=== PATIENT | male | born 1970 | race Caucasian/White ===

== ENCOUNTER 2016-10-10 00:21 | Emergency (ER) ==
[2016-10-10] MEDS ORDERED: NITROGLYCERIN SL PRN (00:28)
--- NOTE | 2016-10-10 00:41 | ED EKG INTERP ---
EKG Interpretation - EKG Time of EKG reading by physician:: 00:34 EKG Read and Signed by:: Ward Richard EKG Interpretation (*Must complete 3 of following elements*): Normal Rate: 77 Rhythm: Normal sinus rhythm Attestation - Scribe Verification/Attestation Scribe:: Francisco Hernández Acting as Scribe for:: Ward Richard Scribe documention review:: This chart was documented by a scribe and accurately reflects the service the provider performed and the decisions made by the provider.
[2016-10-10 01:46] LABS: BASO% 1.3 % (0.0-0.8); EOS# 0.76 X1000 (0.0-0.7); EOS% 9.3 % (0.0-10.0); HEMATOCRIT 43.2 % (42.0-52.0); HEMOGLOBIN 13.7 g/dL (14.0-18.0); IMM GRAN# 0.02 X1000 (0.0-0.04); IMM GRAN% 0.2 % (0.0-0.5); LYMPH# 1.95 X1000 (1.2-3.4); LYMPH% 23.8 % (20.5-51.1); MANUAL DIFF NEEDED? NO; MCH 22.9 PG (27-31); MCHC 31.7 g/dL (33-37); MCV 72.2 FL (81-99); MONO# 0.38 X1000 (0.11-0.59); MONO% 4.6 % (1.7-9.3); MPV 11.3 FL (7.4-10.4); NEUT% 60.8 % (42.2-75.2); PLT 316 X1000 (130-400); RBC 5.98 XMIL (4.7-6.1)
[2016-10-10 01:51] LABS: INR 0.98; PROTIME 10.4 Seconds (9.2-11.7); PTT 28.5 Seconds (22.0-36.0)
[2016-10-10 02:04] LABS: AGAP 17; ALBUMIN 4.6 g/dL (3.5-5.0); ALKALINE PHOSPHATASE 94 U/L (32-122); BUN 8 mg/dL (8-22); CALCIUM 9.2 mg/dL (8.8-10.2); CHLORIDE 102 mmol/L (98-107); CK PROFILE 194 U/L (24-204); COSMO 281; GOT 21 U/L (10-34); GPT 19 U/L (10-44); MAGNESIUM 2.2 mg/dL (1.5-2.7); POTASSIUM 4.1 mmol/L (3.5-5.1); SODIUM 142 mmol/L (136-145); TCO2 23 mmol/L (25-35); TOTAL BILIRUBIN 0.18 mg/dL (0.20-1.00); TOTAL PROTEIN 7.8 g/dL (6.3-8.3)
--- NOTE | 2016-10-10 02:55 | ED EKG INTERP ---
EKG Interpretation - EKG Time of EKG reading by physician:: 02:45 EKG Read and Signed by:: Ward Richard EKG Interpretation (*Must complete 3 of following elements*): Normal Rate: 71 Rhythm: Normal sinus rhythm Attestation - Scribe Verification/Attestation Scribe:: Francisco Hernández Acting as Scribe for:: Ward Richard Scribe documention review:: This chart was documented by a scribe and accurately reflects the service the provider performed and the decisions made by the provider.
--- NOTE | 2016-10-10 03:18 | PROVIDER DOCUMENTATION ---
HPI-Chest Pain - General Source: patient - History of Present Illness-CP Location: reports: central Chest Pain Radiation: reports: neck (L) Severity in ED: mild Onset/Duration: 4-6 hours ago Timing: still present Context/Activities at Onset: reports: light activity Associated Symptoms: reports: nausea. denies: abdominal pain, back pain, diaphoresis, edema, fatigue, headache, shortness of breath, swelling/lump in chest, syncope, vomiting, weakness Aspirin Treatment Today: no aspirin today <Francisco Hernández - Last Filed: 10/10/16 03:13> <Ward Richard - Last Filed: 10/10/16 03:59> - General Chief Complaint: Chest Pain Stated Complaint: CP Time Seen by Provider: 10/10/16 01:27 Allergies/Adverse Reactions: Patient Allergies Allergy/AdvReac Type Severity Reaction Status Date / Time acetaminophen [From [place]] Allergy Intermediate HIVES Verified 10/10/16 01:42 hydrocodone bitartrate * Allergy Intermediate HIVES Verified 10/10/16 01:42 [From [place]] ketorolac tromethamine * Allergy Mild RASH Verified 10/10/16 01:42 [From Toradol] promethazine HCl * AdvReac Mild "makes me Verified 10/10/16 01:42 [From Phenergan] drunk" Home Medications: Home Medication List Medication Instructions Recorded Confirmed Last Taken Type Aspirin EC 81 mg PO QAM 12/19/14 10/10/16 10/09/16 History Furosemide [Lasix] 40 mg PO DAILY PRN PRN 12/19/14 10/10/16 10/09/16 History Sertraline [Zoloft] 50 mg PO QAM 12/19/14 10/10/16 10/09/16 History Potassium Chloride 10 meq PO DAILY PRN 01/05/15 10/10/16 10/09/16 History Atorvastatin Calcium [Lipitor] 80 mg PO QAM 02/08/15 10/10/16 10/09/16 History Prasugrel [Effient] 10 mg PO QAM 05/28/15 10/10/16 10/09/16 History Ranolazine E.r. [Ranexa] 1,000 mg PO BID 05/21/16 10/10/16 10/09/16 History Ferrous Sulfate 325 mg PO DAILY 08/06/16 10/10/16 10/09/16 History Isosorbide Mononitrate [Isosorbide 30 mg PO BID 08/06/16 10/10/16 10/09/16 History Mononitrate ER] Metoprolol Tartrate 50 mg PO BID 08/06/16 10/10/16 10/09/16 History Nicotine Patch [Nicoderm Patch] 21 mg TD DAILY 08/06/16 10/10/16 10/09/16 History - History of Present Illness-CP Nature of Presenting Problem: Pt is a 46 yom who presents to ER with CC of chest pain with onset of x4-6 hours ago, when he was sitting at his tv. Pt indicates c/p at L anterior chest radiating to L posterior neck, started as 09/24 is now 03/24. On exam, pt is non diaphoretic and in no acute distress. Pt reports hx of CT x3. (Francisco Hernández) Review of Systems - Adult - REVIEW OF SYSTEMS - ADULT Constitutional: denies: chills, fever, fatique, night sweats Eyes: reports: no symptoms reported Ears, Nose, Mouth & Throat: reports: no symptoms reported Cardiovascular: reports: chest pain. denies: edema, heart murmur, irregular heart rate, orthopnea, palpitations, poor circulation, PND, syncope Respiratory: denies: chronic cough, cough, dyspnea on exertion, excessive sputum production, hemoptysis, shortness of breath, wheezing Gastrointestinal: reports: nausea. denies: abdominal pain, hematemesis, constipation, diarrhea, poor appetite, vomiting Genitourinary: reports: no symptoms reported Musculoskeletal: reports: neck pain (L posterior). denies: bone pain, back pain , frequent leg cramps, joint pain, joint swelling, muscle aches, muscle weakness Integumentary: reports: no symptoms reported Neurological: reports: no symptoms reported Psychiatric: reports: no symptoms reported Endocrine: reports: no symptoms reported Hematologic/Lymphatic: reports: no symptoms reported Allergic/Immunologic: reports: no symptoms reported All Other Systems: Reviewed and Negative <Francisco Hernández - Last Filed: 10/10/16 03:13> Past History - Adult - PAST MEDICAL HISTORY-ADULT Review of Records: reports: Nursing Assessment Review, Medications Reviewed Cardiovascular: reports: cardiac disease, hyperlipidemia, CT, other (CABG). denies: HTN (hypotension) Gastrointestinal: reports: GERD Musculoskeletal: reports: chronic pain (chronic back pain) Psychiatric: reports: depression - PRIOR SURGERIES/PROCEDURES Surgical/Procedure History: reports: CABG, cardiac stent, other (cardiac cath by dr vargas 05-29-15) - PRIOR HOSPITALIZATIONS Prior Hospitalizations: reports: for similar symptoms, for other non-related - IMMUNIZATION STATUS Childhood Immunizations: See Nurse Assessment Flu Vaccine: See Nurse Assessment - FAMILY HISTORY Family History: aortic disease <Francisco Hernández - Last Filed: 10/10/16 03:13> Physical Exam-General - PHYSICAL EXAM-ADULT Initial Vital Signs Reviewed: Yes - CONSTITUTIONAL General Appearance: appears well, alert, mild distress. negative: obese, lethargic, slow to respond, obtunded, combative - RESPIRATORY Respiratory: chest non-tender, lungs clear, normal breath sounds. negative: respiratory distress, decreased breath sounds, accessory muscle use, wheezing - CARDIOVASCULAR Cardiovascular: normal peripheral pulses, regular rate, rhythm. negative: bradycardia, tachycardia, diastolic murmur, systolic murmur, irregularly irregular - CHEST (BREASTS) Chest/Breast: no masses/lumps, no tenderness. negative: tenderness - GASTROINTESTINAL (ABDOMEN) Abdominal Exam: normal bowel sounds, non tender, soft. negative: abnormal bowel sounds, distended, guarding, rebound, tenderness, mass - MUSCULOSKELETAL Back Exam: no CVA tenderness, no vertebral tenderness. negative: CVA tenderness , decreased range of motion, muscle spasm, vertebral tenderness Extremity: normal range of motion, non-tender, normal gait. negative: deformity , erythema, inflammation, pedal edema, swelling, tenderness - NEUROLOGIC Neurologic: grossly normal, no motor/sensory deficits - PSYCHIATRIC Psych/Mental Status: normal thought content, normal thought process, oriented x 3, anxious <Francisco Hernández - Last Filed: 10/10/16 03:13> Progress <Francisco Hernández - Last Filed: 10/10/16 03:13> - XRAY 1 XRAY Study: Chest Impression: Normal <Ward Richard - Last Filed: 10/10/16 03:59> - PLAN OF CARE/RESULTS Progress/Plan/Lab Results: Laboratory Tests 10/10/16 10/10/16 10/10/16 01:25 01:25 01:25 WBC 8.21 RBC 5.98 Hgb 13.7 L Hct 43.2 MCV 72.2 L MCH 22.9 L MCHC 31.7 L RDW Std Deviation 17.6 H Plt Count 316 MPV 11.3 H Immature Gran % (Auto) 0.2 Neut % (Auto) 60.8 Lymph % (Auto) 23.8 Mckenzie % (Auto) 4.6 Eos % (Auto) 9.3 Baso % (Auto) 1.3 H Immature Gran # (Auto) 0.02 Neut # (Auto) 4.99 Lymph # (Auto) 1.95 Mckenzie # (Auto) 0.38 Eos # (Auto) 0.76 H Baso # (Auto) 0.11 PT INR PTT (Actin FS) D-Dimer 0.21 Sodium 142 Potassium 4.1 Chloride 102 Carbon Dioxide 23 L Anion Gap 17 BUN 8 Creatinine 1.2 Estimated GFR/1.73 m2 > 60 BUN/Creatinine Ratio 7 Glucose 96 Calculated Osmolality 281 Calcium 9.2 Magnesium 2.2 Total Bilirubin 0.18 L AST 21 ALT 19 Alkaline Phosphatase 94 Creatine Kinase 194 Troponin T Npk-U-Ptqhtyjpzwo Pept Total Protein 7.8 Albumin 4.6 Globulin 3.2 Albumin/Globulin Ratio 1.4 10/10/16 10/10/16 10/10/16 01:25 01:25 01:25 WBC RBC Hgb Hct MCV MCH MCHC RDW Std Deviation Plt Count MPV Immature Gran % (Auto) Neut % (Auto) Lymph % (Auto) Mckenzie % (Auto) Eos % (Auto) Baso % (Auto) Immature Gran # (Auto) Neut # (Auto) Lymph # (Auto) Mckenzie # (Auto) Eos # (Auto) Baso # (Auto) PT 10.4 INR 0.98 PTT (Actin FS) 28.5 D-Dimer Sodium Potassium Chloride Carbon Dioxide Anion Gap BUN Creatinine Estimated GFR/1.73 m2 BUN/Creatinine Ratio Glucose Calculated Osmolality Calcium Magnesium Total Bilirubin AST ALT Alkaline Phosphatase Creatine Kinase Troponin T < 0.010 Dao-Y-Bshpdlhedep Pept 33 Total Protein Albumin Globulin Albumin/Globulin Ratio 10/10/16 10/10/16 02:45 02:45 WBC RBC Hgb Hct MCV MCH MCHC RDW Std Deviation Plt Count MPV Immature Gran % (Auto) Neut % (Auto) Lymph % (Auto) Mckenzie % (Auto) Eos % (Auto) Baso % (Auto) Immature Gran # (Auto) Neut # (Auto) Lymph # (Auto) Mckenzie # (Auto) Eos # (Auto) Baso # (Auto) PT INR PTT (Actin FS) D-Dimer Sodium Potassium Chloride Carbon Dioxide Anion Gap BUN Creatinine Estimated GFR/1.73 m2 BUN/Creatinine Ratio Glucose Calculated Osmolality Calcium Magnesium Total Bilirubin AST ALT Alkaline Phosphatase Creatine Kinase 178 Troponin T < 0.010 Ubt-C-Npwgkojkced Pept Total Protein Albumin Globulin Albumin/Globulin Ratio Orders Category Date Time Status CHEST-2 VIEWS [RAD] Stat Exams 10/10/16 00:29 Taken CBC WITH ELECTRONIC DIFF [HEME] Stat Lab 10/10/16 01:25 Completed CK PROFILE [SP CHEM] Stat Lab 10/10/16 01:25 Completed CK PROFILE [SP CHEM] Stat Lab 10/10/16 02:45 Completed COMPREHENSIVE METABOLIC PANEL [CHEM] Stat Lab 10/10/16 01:25 Completed D-DIMER [CHEM] Stat Lab 10/10/16 01:25 Completed MAGNESIUM [CHEM] Stat Lab 10/10/16 01:25 Completed PRO B-NATRIURETIC PEPTIDE Stat Lab 10/10/16 01:25 Completed PROTIME WITH INR [COAG] Stat Lab 10/10/16 01:25 Completed PTT [COAG] Stat Lab 10/10/16 01:25 Completed TROPONIN T Stat Lab 10/10/16 01:25 Completed TROPONIN T Stat Lab 10/10/16 02:45 Completed Nitroglycerin Sl [Nitroglycerin] Med 10/10/16 00:28 Active 0.4 mg SL Q5M PRN PRN Oxycodone/APAP 10 mg/325 mg [Percocet-10] Med 10/10/16 03:48 Discontinued 1 each PO NOW ONE Promethazine [Phenergan] Med 10/10/16 03:48 Discontinued 25 mg PO NOW ONE EKG [EKG] Stat Ther 10/10/16 00:29 Ordered EKG [EKG] Stat Ther 10/10/16 02:28 Ordered Vital Signs Temp Pulse Resp BP Pulse Ox 10/10/16 00:24 98.1 F 61 20 193/83 100 acetaminophen [From [place]] Allergy (Intermediate, Verified 10/10/16 01:42) HIVES hydrocodone bitartrate * [From [place]] Allergy (Intermediate, Verified 10/10/16 01:42) HIVES ketorolac tromethamine * [From Toradol] Allergy (Mild, Verified 10/10/16 01:42) RASH promethazine HCl * [From Phenergan] Adverse Reaction (Mild, Verified 10/10/16 01 :42) "makes me drunk" Aspirin EC 81 mg PO QAM 12/19/14 Furosemide [Lasix] 40 mg PO DAILY PRN PRN 12/19/14 Sertraline [Zoloft] 50 mg PO QAM 12/19/14 Potassium Chloride 10 meq PO DAILY PRN 01/05/15 Atorvastatin Calcium [Lipitor] 80 mg PO QAM 02/08/15 Prasugrel [Effient] 10 mg PO QAM 05/28/15 Ranolazine E.r. [Ranexa] 1,000 mg PO BID 05/21/16 Ferrous Sulfate 325 mg PO DAILY 08/06/16 Isosorbide Mononitrate [Isosorbide Mononitrate ER] 30 mg PO BID 08/06/16 Metoprolol Tartrate 50 mg PO BID 08/06/16 Nicotine Patch [Nicoderm Patch] 21 mg TD DAILY 08/06/16 Laboratory 10/10/16 10/10/16 10/10/16 02:45 02:45 01:25 WBC RBC Hgb Hct MCV MCH MCHC RDW Std Deviation Plt Count MPV Immature Gran % (Auto) Neut % (Auto) Lymph % (Auto) Mckenzie % (Auto) Eos % (Auto) Baso % (Auto) Immature Gran # (Auto) Neut # (Auto) Lymph # (Auto) Mckenzie # (Auto) Eos # (Auto) Baso # (Auto) PT INR PTT (Actin FS) D-Dimer Sodium Potassium Chloride Carbon Dioxide Anion Gap BUN Creatinine Estimated GFR/1.73 m2 BUN/Creatinine Ratio Glucose Calculated Osmolality Calcium Magnesium Total Bilirubin AST ALT Alkaline Phosphatase Creatine Kinase 178 Troponin T < 0.010 < 0.010 Krs-N-Bbxymwkzzte Pept Total Protein Albumin Globulin Albumin/Globulin Ratio 10/10/16 10/10/16 10/10/16 01:25 01:25 01:25 WBC RBC Hgb Hct MCV MCH MCHC RDW Std Deviation Plt Count MPV Immature Gran % (Auto) Neut % (Auto) Lymph % (Auto) Mckenzie % (Auto) Eos % (Auto) Baso % (Auto) Immature Gran # (Auto) Neut # (Auto) Lymph # (Auto) Mckenzie # (Auto) Eos # (Auto) Baso # (Auto) PT 10.4 INR 0.98 PTT (Actin FS) 28.5 D-Dimer 0.21 Sodium Potassium Chloride Carbon Dioxide Anion Gap BUN Creatinine Estimated GFR/1.73 m2 BUN/Creatinine Ratio Glucose Calculated Osmolality Calcium Magnesium Total Bilirubin AST ALT Alkaline Phosphatase Creatine Kinase Troponin T Kdu-Z-Viahhcuypfg Pept 33 Total Protein Albumin Globulin Albumin/Globulin Ratio 10/10/16 10/10/16 01:25 01:25 WBC 8.21 RBC 5.98 Hgb 13.7 L Hct 43.2 MCV 72.2 L MCH 22.9 L MCHC 31.7 L RDW Std Deviation 17.6 H Plt Count 316 MPV 11.3 H Immature Gran % (Auto) 0.2 Neut % (Auto) 60.8 Lymph % (Auto) 23.8 Mckenzie % (Auto) 4.6 Eos % (Auto) 9.3 Baso % (Auto) 1.3 H Immature Gran # (Auto) 0.02 Neut # (Auto) 4.99 Lymph # (Auto) 1.95 Mckenzie # (Auto) 0.38 Eos # (Auto) 0.76 H Baso # (Auto) 0.11 PT INR PTT (Actin FS) D-Dimer Sodium 142 Potassium 4.1 Chloride 102 Carbon Dioxide 23 L Anion Gap 17 BUN 8 Creatinine 1.2 Estimated GFR/1.73 m2 > 60 BUN/Creatinine Ratio 7 Glucose 96 Calculated Osmolality 281 Calcium 9.2 Magnesium 2.2 Total Bilirubin 0.18 L AST 21 ALT 19 Alkaline Phosphatase 94 Creatine Kinase 194 Troponin T Opx-F-Owcfeliltdf Pept Total Protein 7.8 Albumin 4.6 Globulin 3.2 Albumin/Globulin Ratio 1.4 (Ward Richard) Departure <Francicso Hernández - Last Filed: 10/10/16 03:13> - Departure Time of Disposition Order: 03:58 Certified Medical Emergency: Emergent <Ward Richard - Last Filed: 10/10/16 03:59> - Departure DIAGNOSIS: Chest pain in adult Disposition: HOME 01 Condition: Good Attestation - Scribe Verification/Attestation Scribe:: Francisco Hernández Acting as Scribe for:: Ward Richard Scribe documention review:: This chart was documented by a scribe and accurately reflects the service the provider performed and the decisions made by the provider. <Francisco Hernández - Last Filed: 10/10/16 03:13> Physician Attestation
[2016-10-10] MEDS ORDERED: PERCOCET-10 PO ONE (03:48)
[2016-10-10] MEDS ORDERED: PHENERGAN PO ONE (03:48)
[2016-10-10 04:08] VITALS: BP 174/84
--- NOTE | 2016-10-10 09:44 | Diag Imaging Result Document ---
PROCEDURE NAME: CHEST-2 VIEWS - 10/10/2016 TWO VIEWS OF THE CHEST: There has been sternotomy. There is a granuloma in the lingula. There has been no significant change since 08/30/2016. IMPRESSION: No acute disease.
--- NOTE | 2016-10-11 07:27 | EKG Report ---
Test Performed on : 10/10/2016 00:34:56 AM Test Reason : Chest Pain Blood Pressure : / mmHG Vent. Rate : 077 BPM Atrial Rate : 077 BPM P-R Int : 144 ms QRS Dur : 096 ms QT Int : 416 ms P-R-T Axes : 063 070 079 degrees QTc Int : 470 ms Normal sinus rhythm. Normal ECG When compared with ECG of 30-AUG-2016 23:40, No significant change was found Unconfirmed Result
--- NOTE | 2016-10-11 07:32 | EKG Report ---
Test Performed on : 10/10/2016 02:45:35 AM Test Reason : cp Blood Pressure : / mmHG Vent. Rate : 071 BPM Atrial Rate : 071 BPM P-R Int : 146 ms QRS Dur : 104 ms QT Int : 430 ms P-R-T Axes : 069 077 075 degrees QTc Int : 467 ms Normal sinus rhythm. Normal ECG When compared with ECG of 10-OCT-2016 00:34, (Unconfirmed) No significant change was found Unconfirmed Result
== END 2016-10-10 04:09 | disposition home or self-care (01) ==
LOC: ED 00:21
DX: R07.89 Other chest pain (principal); M54.2 Cervicalgia; R11.0 Nausea; I25.2 Old myocardial infarction; E78.5 Hyperlipidemia, unspecified; G89.29 Other chronic pain; M54.9 Dorsalgia, unspecified; F32.9 Major depressive disorder, single episode, unspecified; Z79.82 Long term (current) use of aspirin; Z79.899 Other long term (current) drug therapy; Z95.1 Presence of aortocoronary bypass graft; Z95.5 Presence of coronary angioplasty implant and graft
CPT/HCPCS: 71020; 80053; 82550; 83735; 83880; 84484; 85025; 85379; 85610; 85730; 93005

== ENCOUNTER 2018-09-05 23:14 | Inpatient (IN) ==
[2018-09-05] MEDS ORDERED: ASPIRIN PO ONE (23:19)
[2018-09-05] MEDS ORDERED: ASPIRIN ONE (23:28)
[2018-09-06 00:09] LABS: BASO# 0.09 X1000 (0.0-0.2); BASO% 0.9 % (0.0-0.8); EOS% 8.9 % (0.0-10.0); HEMATOCRIT 45.6 % (42.0-52.0); HEMOGLOBIN 15.1 g/dL (14.0-18.0); IMM GRAN# 0.02 X1000 (0.0-0.04); IMM GRAN% 0.2 % (0.0-0.5); LYMPH# 2.96 X1000 (1.2-3.4); LYMPH% 29.2 % (20.5-51.1); MCH 28.1 PG (27-31); MCHC 33.1 g/dL (33-37); MCV 84.9 FL (81-99); MONO# 0.53 X1000 (0.11-0.59); MONO% 5.2 % (1.7-9.3); MPV 11.7 FL (7.4-10.4); NEUT# 5.62 X1000 (1.4-6.5); NEUT% 55.6 % (42.2-75.2); PLT 241 X1000 (130-400); RBC 5.37 XMIL (4.7-6.1); RDW 13.4 % (11.5-14.5); WBC 10.12 X1000 (4.8-10.8)
[2018-09-06 00:17] LABS: INR 0.91
[2018-09-06 00:47] LABS: AGAP 11; ALB/GLOB RATIO 1.6; ALKALINE PHOSPHATASE 89 U/L (32-122); BUN 10 mg/dL (8-22); CALCIUM 9.1 mg/dL (8.8-10.2); CHLORIDE 103 mmol/L (98-107); CK PROFILE 195 U/L (24-204); COSMO 281; CREATININE 1.2 mg/dL (0.7-1.2); ESTIMATED GFR > 60; GLUCOSE 146 mg/dL (70-104); GOT 18 U/L (10-34); GPT 21 U/L (10-44); SODIUM 140 mmol/L (136-145); TCO2 26 mmol/L (25-35); TOTAL BILIRUBIN < 0.15 mg/dL (0.20-1.00); TOTAL PROTEIN 6.5 g/dL (6.3-8.3)
[2018-09-06] MEDS ORDERED: LABETALOL IV PRN (01:33)
--- NOTE | 2018-09-06 01:43 | PROVIDER DOCUMENTATION ---
This chart was entered by Yasmeen Link Scribe, acting as scribe for Jimmie Rivera MD. HPI-Chest Pain - General Chief Complaint: Chest Pain Stated Complaint: CHEST PAIN-HX OF HEART PROBLEMS Time Seen by Provider: 09/06/18 01:03 Source: patient Allergies/Adverse Reactions: Patient Allergies Allergy/AdvReac Type Severity Reaction Status Date / Time acetaminophen [From [place]] Allergy Intermediate HIVES Verified 03/11/18 11:27 hydrocodone bitartrate * Allergy Intermediate HIVES Verified 03/11/18 11:27 [From [place]] ketorolac tromethamine * Allergy Mild RASH Verified 03/11/18 11:27 [From Toradol] promethazine HCl * AdvReac Mild "makes me Verified 03/11/18 11:27 [From Phenergan] drunk" Home Medications: Home Medication List Medication Instructions Recorded Confirmed Last Taken Type Atorvastatin Calcium [Lipitor] 80 mg PO DAILY 02/08/15 09/06/18 02/14/17 History Clonidine HCl 0.1 mg PO PRN PRN 01/24/17 09/06/18 02/14/17 History Omeprazole 40 mg PO DAILY@0700 01/24/17 09/06/18 02/14/17 History Tamsulosin HCl 1 tab PO DAILY 01/24/17 09/06/18 02/14/17 History Aspirin [Adult Low Dose Aspirin EC] 81 mg PO DAILY 12/12/17 09/06/18 Unknown History Febuxostat [Uloric] 80 mg PO DAILY 12/12/17 09/06/18 Unknown History Fluoxetine HCl 20 mg PO DAILY 12/12/17 09/06/18 Unknown History Hydrochlorothiazide 25 mg PO DAILY 12/12/17 09/06/18 Unknown History Lisinopril 40 mg PO DAILY 12/12/17 09/06/18 Unknown History Acetaminophen/Diphenhydramine 1 ea PO Q6-8H PRN PRN #20 tab 03/11/18 09/06/18 Unknown Rx [Percogesic 325-12.5 mg Tablet] - History of Present Illness-CP Nature of Presenting Problem: HEART SCORE 6 pt is a 48 yr old male presenting with chest pain radiating down left arm and nausea, pt denies shortness of breath. pt significant cardiac hx including 3 HI , 3 stents and CABG. 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 denies: diaphoresis, fatigue, shortness of breath, vomiting Nitro Today/Relief: 0.4 mg x 3, provided at home, no relief Aspirin Treatment Today: 325 mg x 1, provided at home Prior Chest Pain/Cardiac Workup: reports: heart attack (x3) Similar Symptoms Previously?: Yes Recently Seen Here or By Another Healthcare Provider: Yes Review of Systems - Adult - REVIEW OF SYSTEMS - ADULT Constitutional: denies: fever, [place]ique Eyes: denies: blurred vision, double vision Ears, Nose, Mouth & Throat: reports: no symptoms reported Cardiovascular: reports: chest pain. denies: palpitations, syncope Respiratory: denies: cough, shortness of breath, wheezing Gastrointestinal: reports: nausea. denies: vomiting Genitourinary: reports: no symptoms reported Musculoskeletal: reports: no symptoms reported Integumentary: reports: no symptoms reported Neurological: denies: dizziness/vertigo, headache/migraines Psychiatric: reports: no symptoms reported Endocrine: reports: no symptoms reported Hematologic/Lymphatic: reports: no symptoms reported Allergic/Immunologic: reports: no symptoms reported All Other Systems: Reviewed and Negative Past History - Adult - PAST MEDICAL HISTORY-ADULT Review of Records: reports: Nursing Assessment Review, Medications Reviewed, Social history reviewed & non-contributory. Major Childhood Illnesses: reports: denies history Cardiovascular: reports: cardiac disease, hyperlipidemia, HI, other (CABG). denies: HTN (hypotension) Respiratory: reports: denies history Gastrointestinal: reports: GERD Obstetrical/Gynecological: reports: denies history Genitourinary: reports: denies history Musculoskeletal: reports: chronic pain (chronic back pain) Neurological: reports: denies history Psychiatric: reports: depression Endocrine/Immune: reports: denies history Other Conditions: reports: denies history - PRIOR SURGERIES/PROCEDURES Surgical/Procedure History: reports: CABG, cardiac stent, other (cardiac cath by dr vargas 10-15-15) - PRIOR HOSPITALIZATIONS Prior Hospitalizations: reports: for similar symptoms, for other non-related - IMMUNIZATION STATUS Childhood Immunizations: See Nurse Assessment Flu Vaccine: See Nurse Assessment - FAMILY HISTORY Family History: aortic disease - SOCIAL HISTORY Smoking: cigarettes Provider spent 3-5 mins advising pt. on dangers of tobacco.: Discussed manners to quit use, and f/u contacts for add'l counseling. Substance Use: denies Living Situation: family Physical Exam-General - PHYSICAL EXAM-ADULT Initial Vital Signs Reviewed: Yes - CONSTITUTIONAL General Appearance: appears well, alert, no apparent distress - EYES Eyes: PERRL/EOMI - HEAD, EARS, NOSE, MOUTH & THROAT HENMT: normocephalic/atraumatic, moist mucous membranes - NECK Neck: non-tender, full range of motion, supple, normal inspection - RESPIRATORY Respiratory: chest non-tender, lungs clear, normal breath sounds - CARDIOVASCULAR Cardiovascular: normal peripheral pulses, regular rate, rhythm, no edema - GASTROINTESTINAL (ABDOMEN) Abdominal Exam: normal bowel sounds, non tender, soft - LYMPHATIC Lymphatic: no adenopathy - MUSCULOSKELETAL Back Exam: normal inspection, no CVA tenderness, no vertebral tenderness Extremity: normal range of motion, non-tender, normal gait, normal inspection - SKIN Integumentary: normal color, normal turgor, warm/dry - NEUROLOGIC Neurologic: grossly normal, no motor/sensory deficits - PSYCHIATRIC Psych/Mental Status: normal mood/affect, normal thought content, normal thought process, oriented x 3 Progress - PLAN OF CARE/RESULTS Progress/Plan/Lab Results: Vital Signs - 8 hr 09/05/18 23:24 Temperature 98.5 F Pulse Rate 88 Respiratory Rate 18 Blood Pressure 201/95 O2 Sat by Pulse Oximetry 99 Laboratory Results - last 24 hr 09/05/18 09/05/18 09/05/18 22:35 22:35 22:35 WBC 10.12 RBC 5.37 Hgb 15.1 Hct 45.6 MCV 84.9 MCH 28.1 MCHC 33.1 RDW Std Deviation 13.4 Plt Count 241 MPV 11.7 H Immature Gran % (Auto) 0.2 Neut % (Auto) 55.6 Lymph % (Auto) 29.2 [place] % (Auto) 5.2 Eos % (Auto) 8.9 Baso % (Auto) 0.9 H Immature Gran # (Auto) 0.02 Neut # (Auto) 5.62 Lymph # (Auto) 2.96 [place] # (Auto) 0.53 Eos # (Auto) 0.90 H Baso # (Auto) 0.09 PT INR PTT (Actin FS) Sodium 140 Potassium 4.0 Chloride 103 Carbon Dioxide 26 Anion Gap 11 BUN 10 Creatinine 1.2 Estimated GFR/1.73 m2 > 60 BUN/Creatinine Ratio 8 Glucose 146 H Calculated Osmolality 281 Calcium 9.1 Total Bilirubin < 0.15 L AST 18 ALT 21 Alkaline Phosphatase 89 Creatine Kinase 195 Troponin T Tcv-T-[id number] Pept 46 Total Protein 6.5 Albumin 4.0 Globulin 2.5 Albumin/Globulin Ratio 1.6 09/05/18 09/05/18 22:35 22:35 WBC RBC Hgb Hct MCV MCH MCHC RDW Std Deviation Plt Count MPV Immature Gran % (Auto) Neut % (Auto) Lymph % (Auto) [place] % (Auto) Eos % (Auto) Baso % (Auto) Immature Gran # (Auto) Neut # (Auto) Lymph # (Auto) [place] # (Auto) Eos # (Auto) Baso # (Auto) PT 13.0 INR 0.91 PTT (Actin FS) 29.0 Sodium Potassium Chloride Carbon Dioxide Anion Gap BUN Creatinine Estimated GFR/1.73 m2 BUN/Creatinine Ratio Glucose Calculated Osmolality Calcium Total Bilirubin AST ALT Alkaline Phosphatase Creatine Kinase Troponin T < 0.010 Wzy-[id number]-Vsrkmylqjql Pept Total Protein Albumin Globulin Albumin/Globulin Ratio Orders Category Date Time Status Activity Type ORDERED Care 09/06/18 01:28 Active Cardiac Monitoring DIRECTED Care 09/05/18 23:20 Active Oxygen Therapy- ED Nursing DIRECTED Care 09/05/18 23:20 Active Saline Loc NOW Care 09/05/18 23:20 Active Vital Signs Order Q1H Care 09/06/18 01:28 Active Heart Healthy Diet Diet 09/06/18 01:29 Active CHEST-2 VIEWS [RAD] Stat Exams 09/05/18 23:[address] ANGIOGRM PULMONARY ARTERIES [CT] Urgent Exams 09/06/18 01:31 Ordered CBC WITH ELECTRONIC DIFF [HEME] Stat Lab 09/05/18 22:35 Completed CK PROFILE [SP CHEM] Q8H Lab 09/06/18 01:30 Ordered CK PROFILE [SP CHEM] Q8H Lab 09/06/18 09:30 Ordered CK PROFILE [SP CHEM] Q8H Lab 09/06/18 17:30 Ordered CK PROFILE [SP CHEM] Stat Lab 09/05/18 22:35 Completed COMPREHENSIVE METABOLIC PANEL [CHEM] Stat Lab 09/05/18 22:35 Completed LIPID PROFILE W/CALC LDL [LIPIDS] Routine Lab 09/07/18 06:00 Ordered PRO B-NATRIURETIC PEPTIDE Stat Lab 09/05/18 22:35 Completed PROTIME WITH INR [COAG] Stat Lab 09/05/18 22:35 Completed PTT [COAG] Stat Lab 09/05/18 22:35 Completed TROPONIN T Q8HR Lab 09/06/18 05:00 Ordered TROPONIN T Q8HR Lab 09/06/18 13:00 Ordered TROPONIN T Q8HR Lab 09/06/18 21:00 Ordered TROPONIN T Stat Lab 09/05/18 22:35 Completed 0.9% Sodium Chloride Inj [Ns] 1,000 ml Med 09/06/18 01:45 Active IV 75 mls/hr ATORVAstatin [Lipitor] Med 09/06/18 09:00 Ordered 80 mg PO DAILY Aspirin Med 09/05/18 23:28 Discontinued 243 mg .ROUTE .STK-MED ONE Aspirin Med 09/05/18 23:19 Discontinued 243 mg PO NOW ONE Aspirin EC Med 09/06/18 09:00 Ordered 81 mg PO DAILY Carvedilol [Coreg] Med 09/06/18 09:00 Ordered 6.25 mg PO BID Febuxostat [Uloric] Med 09/06/18 09:00 Ordered 80 mg PO DAILY Fluoxetine [Prozac] Med 09/06/18 09:00 Ordered 20 mg PO DAILY Hydrochlorothiazide Med 09/06/18 09:00 Active 25 mg PO DAILY Hydromorphone [Dilaudid] Med 09/06/18 01:38 Active 0.5 mg IV Q6H PRN PRN Labetalol Med 09/06/18 01:33 Active 20 mg IV Q4H PRN PRN Lisinopril [Lisinopril] Med 09/06/18 09:00 Ordered 40 mg PO DAILY Omeprazole [Prilosec] Med 09/06/18 07:00 Active 40 mg PO DAILY@0700 Pantoprazole [Protonix] Med 09/06/18 01:45 Discontinued 40 mg IV Q24H Tamsulosin [Flomax] Med 09/06/18 09:00 Active 0.4 mg PO DAILY CP/SOB/Palp >45 yrs of Age Stat Oth 09/05/18 23:19 Ordered ECHO COMPL W/Contrast Definity Routine Ther 09/06/18 01:31 Ordered EKG [EKG] Stat Ther 09/05/18 23:20 Ordered Result Diagrams: 09/05/18 22:35 09/05/18 22:35 - EKG 1 Time of EKG reading by physician:: 23:23 EKG Read and Signed by:: Jimmie Rivera EKG Interpretation (*Must complete 3 of following elements*): Abnormal Rate: 89 Rhythm: nsr [place]: normal QRS: normal [place] Interval: prolonged ST Wave: normal - CONSULTS/PCP/HOSPITALIST Notification #1 *Consult/PCP/Hospitalist*: Dr Landeros Time Discussed: 01:20 Reason/Comments: plan of care for pt admission Consult Disposition: Admit Departure - Departure Date of Disposition Decision: 09/06/18 Time of Disposition Decision: 01:32 DIAGNOSIS: Chest pain Disposition: ADMITTED INPATIENT 09 Certified Medical Emergency: Emergent Condition: Stable Referrals and Follow-Ups: Evelio Del Real MD [Primary Care Provider] - - Critical Care Note This patient required my direct & personal management of CC.: No Attestation - Physician/ ARVIND Attestation Patient care was provided by Advanced Practice Provider:: No The physician spent face to face time with patient:: Yes Advanced Practice Provider documentation review:: Supervising physician onsite and consulted in the evaluation and care of this patient. The physician did have a face to face encounter with the patient. This chart was documented by the indicated scribe, (Yasmeen Link Scribe) and accurately reflects the services I performed and decisions made by me, Jimmie Rivera MD, as attested by the provider's signature.
[2018-09-06] MEDS ORDERED: SODIUM CHLORIDE 0.9% INJ SCH (01:45)
[2018-09-06] MEDS ORDERED: PROTONIX IV SCH (01:45)
[2018-09-06] MEDS ORDERED: NS 1,000 ML IV SCH (01:45)
[2018-09-06] MEDS: DILAUDID IV PRN ×3 (02:36→17:55)
[2018-09-06] MEDS ORDERED: ZOFRAN IV ONE (05:32)
[2018-09-06] MEDS ORDERED: DILAUDID IV ONE (05:32)
--- NOTE | 2018-09-06 05:39 | Diag Imaging Result Doc PS360 ---
EXAM: CHEST-2 VIEWS HISTORY: CP TECHNIQUE: Chest two views COMPARISON: 12/11/2017 FINDINGS: The lungs are well expanded. The heart is not enlarged. Sternal wires are present. The vessels are not distended. There are no infiltrates. No pleural effusions. IMPRESSION: No acute abnormality. Electronically signed by Carlos Ruggiero 09/06/2018 5:37 AM
--- NOTE | 2018-09-06 06:29 | Diag Imaging Result Doc PS360 ---
CT ANGIOGRM PULMONARY ARTERIES - 09/06/2018 INDICATION: chest pain TECHNIQUE: Axial CT images were obtained after administering intravenous contrast. Coronal MIP images were generated. COMPARISON: None FINDINGS: There is no pulmonary embolism. There is advanced calcified coronary artery disease. There are CABG changes. The left anterior descending bypass graft appears to be patent. Upper abdominal images are unremarkable. The lungs and airways are clear. Bony structures are intact. IMPRESSION: Negative for pulmonary embolism. No acute disease. This exam was performed using automated exposure control, adjustment of mA or kV according to patient size, and/or use of iterative reconstruction technique Electronically signed by Donaldo Wiggins 09/06/2018 6:27 AM
[2018-09-06] MEDS ORDERED: PRILOSEC PO SCH (07:00)
--- NOTE | 2018-09-06 07:11 | EKG Report ---
Test Performed on : 09/05/2018 11:23:01 PM Test Reason : CP Blood Pressure : / mmHG Vent. Rate : 089 BPM Atrial Rate : 089 BPM P-R Int : 146 ms QRS Dur : 088 ms QT Int : 398 ms P-R-T Axes : 064 078 081 degrees QTc Int : 484 ms Normal sinus rhythm. Prolonged QT Abnormal ECG When compared with ECG of 12-DEC-2017 10:33, (Unconfirmed) No significant change was found Unconfirmed Result
--- NOTE | 2018-09-06 08:32 | HISTORY AND PHYSICAL ---
CHIEF COMPLAINT: Left-sided chest pain which started prior to admission. HISTORY OF PRESENT ILLNESS: Mr. Baron Hess is a 48-year-old male who has a history of coronary artery disease, hypertension, diabetes mellitus, gout, and hyperlipidemia. He presented to the hospital because of left-sided chest pain which started about 1-1/2 hours prior to presenting to the ER. He described the pain as pressure-like. On a scale of 0 to 10, it is about 8/10. Intermittent and he feels some heaviness in the left arm. No known aggravating or alleviating factors. Denies any palpitations, shortness of breath, or diaphoresis. However, he does admits to having some nausea. He was seen and evaluated in the ER. He will now be admitted to the floor for further management. PAST MEDICAL HISTORY: Coronary artery disease, hypertension, diabetes, gout, hyperlipidemia. SOCIAL HISTORY: He smokes cigarettes. No alcohol or drug use. ALLERGIES: He is allergic to [place], Ketoralac, as well as promethazine. FAMILY HISTORY: Positive for heart disease. MEDICATIONS: Include the following, atorvastatin calcium 80 mg p.o. daily, clonidine 0.1 mg p.o. p.r.n., omeprazole 40 mg p.o. daily, tamsulosin 1 tablet p.o. daily, aspirin 81 mg p.o. daily, Uloric 80 mg p.o. daily, fluoxetine 10 mg p.o. daily, hydrochlorothiazide 25 mg p.o. once a day, lisinopril 40 mg p.o. daily, Percogesic 325/12.5 one p.o. q.6-8 hours p.r.n. PAST SURGICAL HISTORY: The patient has had CABG in the past. This was in 2016. REVIEW OF SYSTEMS: Constitutional: No fever. 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 Eyes: No blurred vision. ENT: No sinus problems or hearing loss. Cardiovascular: As in the history of present illness. Respiratory: No cough. Gastroenterology: Has nausea. No vomiting. No diarrhea or constipation. No abdominal pains. : No dysuria. Psychiatric: Has anxiety with depression. Endocrinology: Has diabetes but no thyroid disease. Dermatology: No skin lesions. Allergy/Immunology: Positive allergic symptoms. Musculoskeletal: Has joint pains. Hematology: No bleeding problems PHYSICAL EXAMINATION: VITAL SIGNS: Temperature 98.5 degrees, pulse 88, respiratory rate is 18, blood pressure 201/95, oxygen saturation 98%. HEENT: Atraumatic, normocephalic. He is anicteric. No oral lesions noted. NECK: No lymphadenopathy or thyromegaly. CARDIOVASCULAR: S1, S2. RESPIRATORY SYSTEM: Has evidence of good air entry bilaterally. ABDOMEN: Soft, nontender. No masses felt. EXTREMITIES: No evidence of edema. CENTRAL NERVOUS SYSTEM: No evidence of focal deficit noted. LABS: WBCs 10.13, hematocrit is 45.6, with a platelet count of 241,000. Sodium is 140, potassium 4.0, chloride is 103, bicarb 26, BUN is 10, creatinine is 1.2. Troponin less than 0.010. EKG shows a normal sinus rhythm with a prolonged MI interval. ASSESSMENT AND PLAN: This is a 48-year-old male who presented to the hospital because of left- sided chest pain. He does have a history of coronary artery disease and had a coronary artery bypass graft in 2016. 1. Atypical chest pain/history of coronary artery disease. Place patient in telemetry. Get serial cardiac enzymes. Maintain patient on aspirin as well as a beta ilda. Get a 2D echocardiogram of the heart. Consult with cardiology. Also get a CTA of the chest. 2. Diabetes mellitus. Maintain patient on sliding scale insulin. Monitor blood sugar levels. Get a hemoglobin A1c level. 3. Hypertension. Optimize blood pressure control using both oral as well as parenteral agent. 4. Gout. Continue Uloric. 5. Hyperlipidemia. Continue lipid-lowering agent. 6. Deep vein thrombosis prophylaxis. Lovenox. 7. Gastrointestinal prophylaxis. Proton pump inhibitor. cc: Ruben Lnaderos MD
[2018-09-06] MEDS ORDERED: COREG PO SCH (09:00)
[2018-09-06] MEDS ORDERED: PRINIVIL PO SCH (09:00)
[2018-09-06] MEDS ORDERED: FLOMAX PO SCH (09:00)
[2018-09-06] MEDS ORDERED: HYDROCHLOROTHIAZIDE PO SCH (09:00)
[2018-09-06] MEDS ORDERED: PROZAC PO SCH (09:00)
[2018-09-06] MEDS ORDERED: LIPITOR PO SCH (09:00)
[2018-09-06] MEDS ORDERED: ASPIRIN EC PO SCH (09:00)
[2018-09-06] MEDS ORDERED: ULORIC PO SCH (09:00)
--- NOTE | 2018-09-06 10:54 | PROGRESS NOTE ---
DATE: 09/06/2018 SUBJECTIVE: This morning Mr. Hess refers to be doing a lot better. Still said he has some chest pain, but not as severe as it was early on when he came to the hospital. Of note, he presented with a blood pressure of 201/95, which has also gradually improved. OBJECTIVELY: Vitals: Currently, blood pressure is 126/57, pulse is 57, respirations 12, temperature 98 degrees. Patient was saturating 94% on room air. General: Mr. Hess is a 48- year-old gentleman. He is in bed. No distress. HEENT: Mucosa is pink and moist. Anicteric. Acyanotic. Neck: Supple. Respiratory: There is good air entry bilaterally. No crepitations. No rhonchi. Cardiovascular: Regular rate and rhythm. There is an old sternotomy scar on the anterior chest wall. There is minimum tenderness also to the left upper chest wall. GI: Abdomen was soft, nontender. Bowel sounds present. Extremities: No pedal edema. Distal pulses present. CENTER DIRECTOR LEAD TEACHER: Patient was awake, alert, oriented. There is no focal neurological deficit. LABORATORY DATA/DIAGNOSTIC DATA: None for today. However, patient troponins have been trended 2 times and they are negative. EKG yesterday did show normal sinus rhythm. There was no ST-segment abnormality. A chest x-ray was negative for any acute pathology. A CTA of the lungs also was negative for PE. CURRENT MEDICATIONS: Have all been reviewed. They include: 1. Aspirin 81 mg daily. 2. Lipitor 80 mg daily. 3. Carvedilol 6.25 b.i.d. 4. Uloric 80 mg daily. 5. Prozac 20 mg daily. 6. Hydrochlorothiazide 25 mg daily. 7. Labetalol p.r.n. 8. Lisinopril 40 mg daily. 9. Omeprazole 40 mg daily. 10. Normal saline at 75 mL per hour. ASSESSMENT: 1. Atypical chest pain. The patient does have a remarkable history of coronary artery disease. He is status post coronary artery bypass graft and stents. However, the last time he was evaluated in November, a stress test was negative. We will be pending Cardiology consult today and go from there. The patient is also pending a 3rd repeat of his troponins. 2. Severe, uncontrolled hypertension on presentation. This is a lot better. It could also be that the patient had precordialgia secondary to severe uncontrolled hypertension, which seems to have improved and the chest pain also has improved. 3. Tobacco abuse. The patient continues to smoke a lot. 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 4. Dyslipidemia. We will continue with statin. 5. Gout. The patient is on Uloric. So, in general, I think Mr. Hess is doing fairly stable. He still has some lingering chest pain, but he refers to be feeling better. We are pending his 3rd troponin and Cardiology recommendations. cc: Jordin Diaz MD MTDD
[2018-09-06] MEDS ORDERED: LOVENOX SUBQ SCH (11:15)
[2018-09-06] MEDS ORDERED: RANEXA PO SCH (11:15)
--- NOTE | 2018-09-06 11:50 | CONSULTATION ---
DATE OF CONSULTATION: 09/06/2018 REASON FOR CONSULTATION: Cardiology was consulted for chest pain. HISTORY OF PRESENT ILLNESS: Mr. Baron Hess is a 48-year-old, gentleman, with history of coronary artery disease, coronary artery bypass grafting, hypertension, comes with complaints of left-sided chest pain which lasted for about 1 to 1.5 hours on a scale he describes as severe 8/10 with heaviness radiating to the left arm. Patient came to the emergency room and was admitted. At the time of my examination, patient was pain free. He has had recurrent visits to the emergency room and has had chest pains frequently. He says he has symptoms of chest pain at least a couple of times a month which are severe enough, however, otherwise he has mild frequent episodes of chest discomfort. There is no associated diaphoresis. There is no palpitations there is no dizziness or syncope. REVIEW OF SYSTEMS: Fourteen-point review of systems was done. GI: There is no history of nausea, vomiting, diarrhea. There is no history of hematemesis or melena. Central nervous system: No focal weakness to suggest a CVA or TIA. Genitourinary: There is no dysuria or hematuria. PAST MEDICAL HISTORY: 1. Coronary artery disease, status post coronary artery bypass grafting at [place], [place] in 2016. 2. He had a drug-eluting stent placement to the saphenous vein graft to obtuse marginal artery. 3. He also had a stent placement to the mid right coronary artery again in 2016. We will get records of all the above. 4. History of hyperlipidemia. 5. Gastroesophageal reflux disease. 6. Depression. 7. Hypertension. 8. The patient is a smoker, has been smoking for many years. HOME MEDICATIONS: Include atorvastatin 80. Clonidine 0.1 p.r.n., omeprazole 40, tamsulosin, enteric-coated aspirin 81 mg a day. Fluoxetine 10, hydrochlorothiazide 25, lisinopril 40, Percogesic. PAST SURGICAL HISTORY: CABG. PHYSICAL EXAMINATION: Vital Signs: On examination, when he came to the emergency room, blood pressure was 200/95. At the time of my examination, blood pressure was 103/59. Neck: Jugular venous pressure was normal. Cardiac: First and second heart sounds were heard. There is no S3, S4 or gallop. Respiratory system: Normal air entry. There is no crepitations or rhonchi. Abdomen: Soft, nontender. There was no guarding or rigidity. Bowel sounds were heard. Central nervous system: Alert and was moving all 4 extremities. Extremities: Examination of extremities revealed no pedal edema. HEENT: Atraumatic, normocephalic. Pupils were equal and reacting to light. LABS: Cardiac enzymes were negative. Electrocardiogram revealed normal sinus rhythm, first- degree AV block with nonspecific ST-T changes. IMPRESSION: Mr. Baron Chinedu Hess is a 48-year-old, gentleman with: 1. History of smoking. 2. Coronary artery disease. 3. Coronary artery bypass grafting. 4. Hypertension. 5. Hyperlipidemia. ASSESSMENT AND PLAN: 1. Coronary intervention in the past. Underwent coronary artery bypass grafting sometime in 2016. Subsequently, he had a saphenous vein graft stent placed on 11/06/2015 in [place]. He also had another stent placed to the mid right coronary artery in January 2016. We will obtain his bypass records from [place]. 2. He has had recurrent episodes of chest pains, which is with multiple visits to the emergency room as well. Given this, I have recommended that he undergo a left heart catheterization. The patient has unstable angina. Risks, benefits, alternatives were explained. Patient will be set up for left heart catheterization in the morning. 3. As far as medications are concerned, in addition to aspirin we will put him on Lovenox, beta blockers and Ranexa. 4. Hypertension: When he came in, his blood pressure was elevated at 200, currently blood pressure is normal. We will continue with his lisinopril. 5. Hyperlipidemia: He is to continue with atorvastatin. 6. He has gastroesophageal reflux disease. Continue with omeprazole. Thank you for the consult. We will follow hospital course. cc: Antoine Martin MD
--- NOTE | 2018-09-06 18:12 | ECHO REPORT ---
ORDER DATE: 09/06/2018 CLINICAL INDICATIONS: A 48-year-old male with chest pain. REQUESTING PHYSICIAN: Dr. Landeros. M-MODE MEASUREMENTS: Left ventricle end diastole: 4.5 cm. Left ventricle end systole: 2.9 cm. Posterior wall: 1.0 cm. Interventricular septum: 1.0 cm. Left atrium: 3.6 cm. Aortic root: 3.0 cm. SUMMARY OF 2-DIMENSIONAL IMAGIN. The left ventricular function is normal. Ejection fraction is estimated visually at 60% to 65%. No wall motion abnormality is noted. 2. The right ventricle appears to be normal. 3. The atria appear to be grossly normal. 4. The mitral valve is normal. 5. Pulse wave Doppler of mitral inflow is normal. 6. Tissue Doppler of septal and lateral mitral annulus averages 7 cm. 7. There is no diastolic dysfunction. 8. No significant mitral regurgitation is noted. 9. The aortic valve appears to be normal. 10.Pulmonary valve looks unremarkable. 11.Tricuspid valve is normal. Color flow mapping indicates mild degree of regurgitation. 12.Pulmonary pressure is 31 mmHg. 13.No pericardial effusion, mass, and no thrombus. Clinical correlation is recommended. cc: MD Ruben Tarango MD
[2018-09-06 18:20] VITALS: BP 138/89
--- NOTE | 2018-09-08 06:45 | DISCHARGE SUMMARY ---
ADMISSION DATE: 09/06/2018 DISCHARGE DATE: 09/06/2018 DATE OF ELOPEMENT: 09/06/2018 at 20:39. ADMISSION DIAGNOSES: 1. Atypical chest pain. 2. Diabetes mellitus. 3. Hypertension. DIAGNOSES AT TIME OF ELOPEMENT: 1. Atypical chest pain. 2. Severe uncontrolled hypertension on presentation. 3. History of coronary artery disease status post bypass and stents. 4. Tobacco abuse. 5. Dyslipidemia. 6. Gout. PRESENTING COMPLAINT: Left-sided chest pain. HISTORY OF PRESENTING COMPLAINT: Mr. Hess is a 48-year-old male with an extensive history of coronary artery disease status post CABG and stents, diabetes mellitus, dyslipidemia, who presented to the emergency department because of chest pain with unremarkable EKGs and normal troponin's. The patient was evaluated by Cardiology and there was a plan for a left heart catheterization. However, the patient ran away the same day, and did not want to stay in the hospital. When the nurse went to check on him in the ER, it was found the room was empty. The patient had gone away. cc: Jordin Diaz MD
== END 2018-09-06 20:22 | disposition left against medical advice (07) | DRG 313 ==
LOC: ED 23:14 → EDIPHOLD 09-06 07:13 → SUATTDRO 09-06 07:13 → EDIPHOLD 09-06 19:20
PROVIDERS: ATTEND Internal Medicine
CPT/HCPCS: 71020; 71046; 71275; 80053; 82550; 83880; 84484; 85025; 85610; 85730; 93005; 93306; 96361; 96372; 96374; 96375; 96376; 99285; A9270; C8929; J1170; J1650; J2405; J7030; Q9957; Q9967

== ENCOUNTER 2019-01-03 18:16 | Inpatient (IN) ==
[2019-01-03] MEDS ORDERED: NITROGLYCERIN SL PRN (18:37)
[2019-01-03] MEDS ORDERED: ASPIRIN PO ONE (18:37)
[2019-01-03] MEDS ORDERED: LABETALOL IV ONE ×2 (18:49→19:35)
[2019-01-03 18:51] LABS: BASO# 0.09 X1000 (0.0-0.2); BASO% 0.8 % (0.0-0.8); EOS# 0.33 X1000 (0.0-0.7); EOS% 2.8 % (0.0-10.0); HEMATOCRIT 44.8 % (42.0-52.0); HEMOGLOBIN 15.8 g/dL (14.0-18.0); IMM GRAN# 0.02 X1000 (0.0-0.04); IMM GRAN% 0.2 % (0.0-0.5); LYMPH# 2.21 X1000 (1.2-3.4); LYMPH% 19.1 % (20.5-51.1); MCH 28.7 PG (27-31); MCHC 35.3 g/dL (33-37); MCV 81.5 FL (81-99); MONO# 0.66 X1000 (0.11-0.59); MONO% 5.7 % (1.7-9.3); MPV 11.8 FL (7.4-10.4); NEUT# 8.29 X1000 (1.4-6.5); NEUT% 71.4 % (42.2-75.2); PLT 292 X1000 (130-400); RDW 13.2 % (11.5-14.5)
[2019-01-03] MEDS ORDERED: LABETALOL ONE ×2 (18:51→19:44)
--- NOTE | 2019-01-03 18:53 | EKG Report ---
Test Performed on : 01/03/2019 6:21:08 PM Test Reason : CP Blood Pressure : / mmHG Vent. Rate : 097 BPM Atrial Rate : 097 BPM P-R Int : 144 ms QRS Dur : 088 ms QT Int : 372 ms P-R-T Axes : 067 082 079 degrees QTc Int : 472 ms Normal sinus rhythm. Possible Left atrial enlargement Borderline ECG When compared with ECG of 05-SEP-2018 23:23, No significant change was found Unconfirmed Result
[2019-01-03 19:08] LABS: INR 0.96; PROTIME 13.3 Seconds (11.0-16.0); PTT 31.3 Seconds (22.3-41.8)
--- NOTE | 2019-01-03 19:16 | PROVIDER DOCUMENTATION ---
This chart was entered by Ruby Ham Scribe, acting as scribe for Evelyn Wheeler CRNP. HPI-Chest Pain - General Chief Complaint: Chest Pain Stated Complaint: CHEST PAIN Time Seen by Provider: 01/03/19 18:38 Source: patient Allergies/Adverse Reactions: Patient Allergies Allergy/AdvReac Type Severity Reaction Status Date / Time acetaminophen [From Boyds] Allergy Intermediate HIVES Verified 03/11/18 11:27 hydrocodone bitartrate * Allergy Intermediate HIVES Verified 03/11/18 11:27 [From Boyds] ketorolac tromethamine * Allergy Mild RASH Verified 03/11/18 11:27 [From Toradol] promethazine HCl * AdvReac Mild "makes me Verified 03/11/18 11:27 [From Phenergan] drunk" Home Medications: Home Medication List Medication Instructions Recorded Confirmed Last Taken Type Atorvastatin Calcium [Lipitor] 80 mg PO DAILY 02/08/15 09/06/18 02/14/17 History Clonidine HCl 0.1 mg PO PRN PRN 01/24/17 09/06/18 02/14/17 History Omeprazole 40 mg PO DAILY@0700 01/24/17 09/06/18 02/14/17 History Tamsulosin HCl 1 tab PO DAILY 01/24/17 09/06/18 02/14/17 History Aspirin [Adult Low Dose Aspirin EC] 81 mg PO DAILY 12/12/17 09/06/18 Unknown History Febuxostat [Uloric] 80 mg PO DAILY 12/12/17 09/06/18 Unknown History Fluoxetine HCl 20 mg PO DAILY 12/12/17 09/06/18 Unknown History Hydrochlorothiazide 25 mg PO DAILY 12/12/17 09/06/18 Unknown History Lisinopril 40 mg PO DAILY 12/12/17 09/06/18 Unknown History Acetaminophen/Diphenhydramine 1 ea PO Q6-8H PRN PRN #20 tab 03/11/18 09/06/18 Unknown Rx [Percogesic 325-12.5 mg Tablet] - History of Present Illness-CP Nature of Presenting Problem: 48yom presents to ED cc left side chest pain that radiates down left arm and nausea that started 2 hours ago while he was yelling. Pt denies vomiting or abdominal pain. Pt has hx of IA, GERD, HTN and hyperlipidemia. Pt is non-toxic in appearance. Location: reports: central Chest Pain Radiation: reports: arms (left), neck Quality of Pain: reports: pressure Severity in ED: mild Onset/Duration: 1-3 hours ago Timing: still present, intermittent Context/Activities at Onset: reports: other (pt reports he was yelling) Modifying Factors: improves with: nothing Associated Symptoms: reports: nausea. denies: abdominal pain, vomiting Nitro Today/Relief: 0.4 mg x 3, provided at home Aspirin Treatment Today: no aspirin today Prior Chest Pain/Cardiac Workup: reports: heart attack Similar Symptoms Previously?: Yes Recently Seen Here or By Another Healthcare Provider: No Review of Systems - Adult - REVIEW OF SYSTEMS - ADULT Constitutional: reports: see HPI. denies: chills, fever, fatique Eyes: reports: no symptoms reported Ears, Nose, Mouth & Throat: reports: no symptoms reported Cardiovascular: reports: see HPI, chest pain (left side). denies: edema, irregular heart rate, syncope Respiratory: reports: no symptoms reported Gastrointestinal: reports: see HPI, nausea. denies: abdominal pain, vomiting Genitourinary: reports: no symptoms reported Musculoskeletal: reports: no symptoms reported Integumentary: reports: no symptoms reported Neurological: reports: no symptoms reported Psychiatric: reports: no symptoms reported Endocrine: reports: no symptoms reported Hematologic/Lymphatic: reports: no symptoms reported Allergic/Immunologic: reports: no symptoms reported All Other Systems: Reviewed and Negative Past History - Adult - PAST MEDICAL HISTORY-ADULT Review of Records: reports: Nursing Assessment Review, Medications Reviewed, Social history reviewed & non-contributory. Major Childhood Illnesses: reports: denies history Cardiovascular: reports: cardiac disease, hyperlipidemia, IA, other (CABG). denies: HTN (hypotension) Respiratory: reports: denies history Gastrointestinal: reports: GERD Obstetrical/Gynecological: reports: denies history Genitourinary: reports: denies history Musculoskeletal: reports: chronic pain (chronic back pain) Neurological: reports: denies history Psychiatric: reports: depression Endocrine/Immune: reports: denies history Other Conditions: reports: denies history - PRIOR SURGERIES/PROCEDURES Surgical/Procedure History: reports: CABG, cardiac stent, other (cardiac cath by dr vargas 05-29-15) - PRIOR HOSPITALIZATIONS Prior Hospitalizations: reports: for similar symptoms, for other non-related - IMMUNIZATION STATUS Childhood Immunizations: See Nurse Assessment Flu Vaccine: See Nurse Assessment - FAMILY HISTORY Family History: aortic disease - SOCIAL HISTORY Smoking: cigarettes, greater than 1 pack/day Provider spent 3-5 mins advising pt. on dangers of tobacco.: Discussed manners to quit use, and f/u contacts for add'l counseling. Physical Exam-General - PHYSICAL EXAM-ADULT Initial Vital Signs Reviewed: Yes - CONSTITUTIONAL General Appearance: appears well, alert, no apparent distress. negative: anxious, combative - EYES Eyes: PERRL/EOMI, pink conjunctivae. negative: photophobia - HEAD, EARS, NOSE, MOUTH & THROAT HENMT: moist mucous membranes, normal ENT inspection. negative: angioedema - NECK Neck: non-tender, full range of motion, supple, normal inspection. negative: Brudzinski's sign, carotid bruit - RESPIRATORY Respiratory: chest non-tender, lungs clear, normal breath sounds, no pleuratic chest pain, no respiratory distress, no accessory muscle use. negative: crackles, rales, rhonchi - CARDIOVASCULAR Cardiovascular: regular rate, rhythm, no gallop, no murmur. negative: bradycardia, tachycardia - GASTROINTESTINAL (ABDOMEN) Abdominal Exam: normal bowel sounds, non tender, soft, no organomegaly. negative: rigid, rebound, tenderness - LYMPHATIC Lymphatic: no adenopathy. negative: striations - MUSCULOSKELETAL Back Exam: normal inspection. negative: swelling Extremity: normal range of motion, normal inspection. negative: deformity - SKIN Integumentary: normal color, warm/dry. negative: diaphoresis, jaundice - NEUROLOGIC Neurologic: buggy runner II-XII nml as tested, grossly normal, no motor/sensory deficits. negative: facial droop, focal weakness - PSYCHIATRIC Psych/Mental Status: normal mood/affect, normal thought content, normal thought process, oriented x 3. negative: anxious - HEART Score HEART Score: History: Moderately Suspicious HEART Score: ECG: Normal HEART Score: Age: 45-65 Years HEART Score: Risk Factors for Atherosclerotic Disease: > or = 3 Risk Factors or History of Atherosclerotic Disease HEART Score: Troponin: < or = Normal Limit Total HEART Score:: 4 Progress - PLAN OF CARE/RESULTS Progress/Plan/Lab Results: Vital Signs - 8 hr 01/03/19 18:20 01/03/19 19:20 Temperature 98.1 F Pulse Rate 89 Respiratory Rate 20 Blood Pressure 204/104 170/098 O2 Sat by Pulse Oximetry 96 Laboratory Results - last 24 hr 01/03/19 01/03/19 01/03/19 18:33 18:33 18:33 WBC 11.60 H RBC 5.50 Hgb 15.8 Hct 44.8 MCV 81.5 MCH 28.7 MCHC 35.3 RDW Std Deviation 13.2 Plt Count 292 MPV 11.8 H Immature Gran % (Auto) 0.2 Neut % (Auto) 71.4 Lymph % (Auto) 19.1 L Boundary % (Auto) 5.7 Eos % (Auto) 2.8 Baso % (Auto) 0.8 Immature Gran # (Auto) 0.02 Neut # (Auto) 8.29 H Lymph # (Auto) 2.21 Boundary # (Auto) 0.66 H Eos # (Auto) 0.33 Baso # (Auto) 0.09 PT INR PTT (Actin FS) Sodium 139 Potassium 4.0 Chloride 99 Carbon Dioxide 25 Anion Gap 15 BUN 7 L Creatinine 1.1 Estimated GFR/1.73 m2 > 60 BUN/Creatinine Ratio 6 Glucose 90 Calculated Osmolality 275 Calcium 9.3 Total Bilirubin 0.60 AST 17 ALT 15 Alkaline Phosphatase 118 Creatine Kinase 180 Troponin T Aat-R-Tzqqesecvbu Pept 39 Total Protein 7.6 Albumin 4.6 Globulin 3.0 Albumin/Globulin Ratio 2.0 01/03/19 01/03/19 18:33 18:33 WBC RBC Hgb Hct MCV MCH MCHC RDW Std Deviation Plt Count MPV Immature Gran % (Auto) Neut % (Auto) Lymph % (Auto) Boundary % (Auto) Eos % (Auto) Baso % (Auto) Immature Gran # (Auto) Neut # (Auto) Lymph # (Auto) Boundary # (Auto) Eos # (Auto) Baso # (Auto) PT 13.3 INR 0.96 PTT (Actin FS) 31.3 Sodium Potassium Chloride Carbon Dioxide Anion Gap BUN Creatinine Estimated GFR/1.73 m2 BUN/Creatinine Ratio Glucose Calculated Osmolality Calcium Total Bilirubin AST ALT Alkaline Phosphatase Creatine Kinase Troponin T < 0.010 Sdh-V-Jacnwfuiulc Pept Total Protein Albumin Globulin Albumin/Globulin Ratio Orders Category Date Time Status Cardiac Monitoring DIRECTED Care 01/03/19 18:37 Active Oxygen Therapy- ED Nursing DIRECTED Care 01/03/19 18:37 Active Saline Loc NOW Care 01/03/19 18:37 Active CHEST-2 VIEWS [RAD] Stat Exams 01/03/19 18:37 Completed CBC WITH ELECTRONIC DIFF [HEME] Stat Lab 01/03/19 18:33 Completed CK PROFILE [SP CHEM] Stat Lab 01/03/19 18:33 Completed COMPREHENSIVE METABOLIC PANEL [CHEM] Stat Lab 01/03/19 18:33 Completed PRO B-NATRIURETIC PEPTIDE Stat Lab 01/03/19 18:33 Completed PROTIME WITH INR [COAG] Stat Lab 01/03/19 18:33 Completed PTT [COAG] Stat Lab 01/03/19 18:33 Completed TROPONIN T Stat Lab 01/03/19 18:33 Completed Aspirin Med 01/03/19 18:37 Discontinued 325 mg PO NOW ONE Labetalol Med 01/03/19 18:49 Discontinued 10 mg IV NOW ONE Labetalol Med 01/03/19 19:35 Discontinued 10 mg IV NOW ONE Labetalol Med 01/03/19 18:51 Discontinued 100 mg .ROUTE .STK-MED ONE Labetalol Med 01/03/19 19:44 Discontinued 100 mg .ROUTE .STK-MED ONE Nitroglycerin Sl [Nitroglycerin] Med 01/03/19 18:37 Active 0.4 mg SL Q5M PRN PRN CP/SOB/Palp >45 yrs of Age Stat Oth 01/03/19 18:37 Ordered EKG [EKG] Stat Ther 01/03/19 18:37 Draft Result Diagrams: 01/03/19 18:33 01/03/19 18:33 - EKG 1 Time of EKG reading by physician:: 18:21 EKG Read and Signed by:: Val Linton EKG Interpretation (*Must complete 3 of following elements*): Abnormal (possible left atrial enlargement) Rate: 97 Rhythm: normal sinus QRS: normal WA Interval: normal - XRAY 1 XRAY: Bilateral XRAY Study: Chest Impression: See EMR Report ([facility] [address], [address], [place] [address] Department of Imaging Patient: BARON LISA CHATMAN Date: 01/03/19MR#: [id number] : 1970ADM Status: REG ERAcct#: [id number] Age/Sex: 48/MRoom/Bed: Loc: P.ED Ordering Physician: Evelyn Wheeler Family Physician: Evelio Del Real MD Reason for Procedure: CP Signed CHEST-2 VIEWS - 01/03/2019 INDICATION: CP COMPARISON: 09/05/2018 FINDINGS: The lungs are normally expanded and clear. Heart size and mediastinal contours are normal. No pneumothorax or pleural effusion. IMPRESSION: Negative exam. Electronically signed by Donaldo Wiggins 01/03/2019 7:29 PM 01/03/191928 Interpreting Physician: Donaldo Wiggins MD Dictated Date/Time: 01/03/191928 cc: Evelyn Wheeler; Evelio Del Real MD) - CONSULTS/PCP/HOSPITALIST Notification #1 *Consult/PCP/Hospitalist*: MD Mandy Time Discussed: 20:00 Reason/Comments: Chest pain; heart score 4 Consult Disposition: Admit Departure - Departure Date of Disposition Decision: 01/03/19 Time of Disposition Decision: 20:01 DIAGNOSIS: Elevated blood pressure reading Chest pain Qualifiers: Chest pain type: unspecified Qualified Code(s): R07.9 - Chest pain, unspecified Disposition: ADMITTED INPATIENT 09 Certified Medical Emergency: Emergent Condition: Stable Referrals and Follow-Ups: Evelio Del Real MD [Primary Care Provider] - - Critical Care Note This patient required my direct & personal management of CC.: Yes Total Time (mins): 45 Critical Care Statement: This patient required my direct personal management to treat or rule out processes, the absence of which, could potentiallly result in sudden, clinically significant life or limb threatening deterioration. Attestation - Physician/ ARVIND Attestation Patient care was provided by Advanced Practice Provider:: Yes Advanced Practice Provider:: Evelyn Wheeler Advanced Practice Provider documentation review:: The Mid-level provider documentation, treatment plan and medical decision making was reviewed by the physician who agrees with all treatment and medical decision making by the MLP. The physician spent face to face time with patient:: No Advanced Practice Provider documentation review:: Supervising physician onsite and consulted in the evaluation and care of this patient. The physician did not have a face to face encounter with the patient. This chart was documented by the indicated scribe, (Ruby Ham Scribe) and accurately reflects the services I performed and decisions made by , Evelyn Wheeler CRNP, as attested by the provider's signature.
[2019-01-03 19:23] LABS: AGAP 15; ALBUMIN 4.6 g/dL (3.5-5.0); ALKALINE PHOSPHATASE 118 U/L (32-122); BUN 7 mg/dL (8-22); CALCIUM 9.3 mg/dL (8.8-10.2); CHLORIDE 99 mmol/L (98-107); CK PROFILE 180 U/L (24-204); COSMO 275; CREATININE 1.1 mg/dL (0.7-1.2); ESTIMATED GFR > 60; GLUCOSE 90 mg/dL (70-104); GOT 17 U/L (10-34); GPT 15 U/L (10-44); SODIUM 139 mmol/L (136-145); TCO2 25 mmol/L (25-35); TOTAL PROTEIN 7.6 g/dL (6.3-8.3)
--- NOTE | 2019-01-03 19:32 | Diag Imaging Result Doc PS360 ---
CHEST-2 VIEWS - 01/03/2019 INDICATION: CP COMPARISON: 09/05/2018 FINDINGS: The lungs are normally expanded and clear. Heart size and mediastinal contours are normal. No pneumothorax or pleural effusion. IMPRESSION: Negative exam. Electronically signed by Donaldo Wiggins 01/03/2019 7:29 PM
[2019-01-03] MEDS ORDERED: MORPHINE IV ONE (20:15)
[2019-01-03] MEDS ORDERED: DILAUDID IV ONE (22:23)
[2019-01-04] MEDS ORDERED: NS 1,000 ML IV ONE (01:22)
[2019-01-04 07:39] LABS: BASO# 0.06 X1000 (0.0-0.2); BASO% 0.7 % (0.0-0.8); EOS# 0.55 X1000 (0.0-0.7); EOS% 6.2 % (0.0-10.0); HEMATOCRIT 42.5 % (42.0-52.0); HEMOGLOBIN 14.4 g/dL (14.0-18.0); IMM GRAN# 0.02 X1000 (0.0-0.04); IMM GRAN% 0.2 % (0.0-0.5); LYMPH# 1.53 X1000 (1.2-3.4); LYMPH% 17.3 % (20.5-51.1); MCH 28.3 PG (27-31); MCHC 33.9 g/dL (33-37); MCV 83.7 FL (81-99); MONO# 0.56 X1000 (0.11-0.59); MONO% 6.3 % (1.7-9.3); MPV 11.5 FL (7.4-10.4); NEUT% 69.3 % (42.2-75.2); PLT 245 X1000 (130-400); RBC 5.08 XMIL (4.7-6.1); RDW 13.4 % (11.5-14.5); WBC 8.82 X1000 (4.8-10.8)
[2019-01-04 07:55] LABS: AGAP 11; ALBUMIN 3.6 g/dL (3.5-5.0); ALKALINE PHOSPHATASE 100 U/L (32-122); BUN 11 mg/dL (8-22); CALCIUM 8.5 mg/dL (8.8-10.2); CHLORIDE 103 mmol/L (98-107); COSMO 283; ESTIMATED GFR > 60; GLUCOSE 172 mg/dL (70-104); GOT 13 U/L (10-34); GPT 12 U/L (10-44); POTASSIUM 3.9 mmol/L (3.5-5.1); SODIUM 140 mmol/L (136-145); TCO2 26 mmol/L (25-35); TOTAL PROTEIN 6.5 g/dL (6.3-8.3)
[2019-01-04] MEDS ORDERED: LEXISCAN ONE (08:00)
[2019-01-04] MEDS ORDERED: CATAPRES PO PRN (08:37)
[2019-01-04] MEDS: MORPHINE IV PRN ×2 (08:51→15:05)
[2019-01-04] MEDS ORDERED: HYDROCHLOROTHIAZIDE PO SCH (09:00)
[2019-01-04] MEDS ORDERED: ULORIC PO SCH (09:00)
[2019-01-04] MEDS ORDERED: PRINIVIL PO SCH (09:00)
[2019-01-04] MEDS ORDERED: LIPITOR PO SCH (09:00)
[2019-01-04] MEDS ORDERED: FLOMAX PO SCH (09:00)
[2019-01-04] MEDS ORDERED: PROZAC PO SCH (09:00)
[2019-01-04] MEDS ORDERED: ASPIRIN EC PO SCH (09:00)
--- NOTE | 2019-01-04 09:04 | EKG Report ---
Test Performed on : 01/04/2019 08:57:18 AM Test Reason : CHEST PAIN Blood Pressure : / mmHG Vent. Rate : 081 BPM Atrial Rate : 081 BPM P-R Int : 160 ms QRS Dur : 086 ms QT Int : 396 ms P-R-T Axes : 068 081 103 degrees QTc Int : 460 ms Normal sinus rhythm. Nonspecific T wave abnormality Prolonged QT Abnormal ECG When compared with ECG of 03-JAN-2019 18:21, (Unconfirmed) Inverted T waves have replaced nonspecific T wave abnormality in Lateral leads Unconfirmed Result
--- NOTE | 2019-01-04 09:41 | HISTORY AND PHYSICAL ---
PRIMARY CARE PHYSICIAN: Dr. Del Real. CHIEF COMPLAINT: Chest pain. HISTORY OF PRESENTING ILLNESS: This is a 48-year-old male who presents to [facility] ER with complaints of left-sided chest pain that he described as a pressure that radiated to his left arm with some associated nausea that began approximately 2 hours prior to arriving while he was having an argument with his son. His heart score was 4. He has had a history of IN with coronary artery disease, CABG, and heart stent placement in the past. He states that this feels similar to his previous IN. His first set of cardiac enzymes were negative. EKG showed normal sinus rhythm at 97. He was admitted for further evaluation and treatment. PAST MEDICAL HISTORY: IN, coronary artery disease, hypertension, diabetes type 2, gout, hyperlipidemia and GERD. PAST SURGICAL HISTORY: CABG and heart stent placement. FAMILY HISTORY: Heart disease. SOCIAL HISTORY: He currently lives with family. He smokes a pack and a half of cigarettes a day, and has done so for 40 years. Denies any alcohol or illicit drug use. ALLERGIES: To acetaminophen, hydrocodone, Ketoralac, and promethazine. HOME MEDICATIONS: We will hold his Percogesic 325 1 p.o. q.6h to 8 hours p.r.n. We will continue the following aspirin 81 mg p.o. daily, Lipitor 80 mg p.o. daily, clonidine 0.1 mg p.o. p.r.n., Uloric 80 mg p.o. daily. Fluoxetine 20 mg p.o. daily, hydrochlorothiazide 25 mg p.o. daily, lisinopril 40 mg p.o. daily, omeprazole 40 mg p.o. daily, and tamsulosin 0.4 mg p.o. daily. LABORATORY DATA: White blood cell count of 11.60, hemoglobin 15.8, hematocrit 44.8, and platelets 292,000. PT and INR of 13.3 and 0.96. Sodium 139, potassium 4, chloride 99, CO2 25, BUN of 7, creatinine 1.1, and glucose 90. Cardiac enzyme was negative times the first set. ProBNP of 39. Chest x-ray showed a negative exam. EKG showed normal sinus rhythm at 97. REVIEW OF SYSTEMS: He denied any fever, chills, blurred vision, or dizziness. He had left-sided chest pain that radiated to his left arm. Denied any cough or shortness of breath. He was positive for nausea. Denied any abdominal pain, constipation, diarrhea, burning or hurting with urination. PHYSICAL EXAMINATION: On arrival, he had a temperature of 98.1 degrees, pulse 89, respirations 20, blood pressure 204/104 and saturating 96% on room air. Currently, his blood pressure is down to 141/56. GENERAL: This is a 48-year-old male who is lying in the bed and answers questions appropriately. HEENT: Normocephalic, atraumatic. Normal ENT inspection. Oropharynx and nares are clear. EYES: Pupils are equal, round, and reactive to light and accommodation. Extraocular movements are intact. NECK: Normal inspection. Normal range of motion. LUNGS: Clear to auscultation bilaterally with equal lung expansion and chest wall movement. HEART: Regular rate and rhythm. No murmurs, rubs, or gallops. ABDOMEN: Soft, nontender, and nondistended. Bowel sounds are present x4 quadrants. MUSCULOSKELETAL: He has 5/5 strength x4 extremities. NEUROLOGICAL: The cranial nerves 2-12 appear grossly intact. ASSESSMENT: 1. Chest pain. 2. Hypertension, accelerated. 3. Diabetes type 2. 4. Tobacco abuse. PLAN: He was admitted to the medical unit, and placed on telemetry. Held NPO. We are going to check serial cardiac enzymes. We will do a myocardial perfusion scan today. Normal saline at 100 mL an hour until he begins eating again. Morphine 2 mg IV q.4 hours p.r.n. Continue his home medications as previously identified. Further orders after seen by attending. Dictated by MARGARET [place] for Jos Galvan MD cc: MARGARET Garcia MD
--- NOTE | 2019-01-04 14:25 | GRADED EXERCISE REPORT ---
DATE: 01/04/2019 PROCEDURE PERFORMED: GXT Lexiscan administration and EKG interpretation. Briefly, the patient underwent testing per protocol Lexiscan. He is a CAD patient, status post CABG, PCI. Baseline heart rate 72, baseline blood pressure 150/90. His baseline EKG showed Q- waves in his inferior leads, 3, and AVF. He had some T-wave inversions in 1 and aVL. Lexiscan was infused 0.4 mg. He did develop some chest pressure, discomfort during the test. Peak heart rate 110, peak blood pressure 155/88. No significant ST changes were noted. The test was felt to be clinically positive, electrically negative. Myocardial perfusion reported separately. cc: Jos Galvan MD
[2019-01-04] MEDS ORDERED: TOPROL XL PO SCH (15:00)
[2019-01-04 16:09] VITALS: BP 150/75
--- NOTE | 2019-01-04 19:49 | HISTORY AND PHYSICAL ---
Patient came in with chest pain. He has a history of CAD. He says he has been released by his physician because he continues to smoke, and I do not think he has seen anybody in a couple years. He came in with sustained chest pain, left chest and left arm, and he was placed in Observation. Physical exam was unremarkable. Workup was otherwise unremarkable. His EKG does show some inferior changes consistent with a myocardial infarction, and he was admitted for treatment. Plan will be to get stress test and follow. If those tests are negative, anticipate discharge and we will arrange followup with a canoe inspector for maintenance of care. In looking at his medications, he is on aspirin. He is on hydrochlorothiazide. He is on an SHAHRIAR inhibitor. I would recommend that he probably should be on a beta ilda. They may have stopped that because he does smoke, but I do not appreciate any wheezing, and he does not technically have emphysema, but I will add some Lopressor or Toprol and see how he does, although we have to hold it for the stress test, until he can follow up with Cardiology. We will continue to monitor. This is a face- to-face encounter note with Isabel Pitts. cc: Jos Galvan MD
--- NOTE | 2019-01-04 22:33 | Diag Imaging Result Document ---
PROCEDURE NAME: MYOCARDIAL PERF SCAN, STR/REST - 01/04/2019 SUMMARY: The patient was administered 11.7 mCi of technetium-99m sestamibi, after which resting cardiac images were obtained. The patient was subsequently administered Lexiscan 0.4 mg intravenously, after which the heart rate went from 72 beats per minute to 110 beats per minute, and the blood pressure went from 158/98 to 136/79. With Lexiscan, the patient reported mild chest discomfort. Following the administration of Lexiscan, the patient was administered 33.8 mCi of technetium-99m sestamibi, after which gated stress cardiac images were obtained. Baseline ECG demonstrates sinus rhythm, cannot exclude previous anterior infarct of undetermined age, and lateral T-wave abnormalities; consider lateral ischemia. With Lexiscan, there were no diagnostic ST-segment changes. SPECT images were reconstructed in the short, horizontal, and vertical long axis. Review of these images demonstrated mild to moderately diminished activity in the basal to mid inferior wall stress images, which improves on resting images. Gated images demonstrate a calculated left ventricular ejection fraction of 65% with symmetrical wall motion. CONCLUSIONS: 1. Adequate response to Lexiscan. 2. Clinically, the patient reported mild chest discomfort with Lexiscan. 3. Electrocardiographically, there were no diagnostic ST-segment changes on electrocardiogram following administration of Lexiscan. 4. Lexiscan sestamibi images demonstrated medium-sized area of mild to moderate reversibility in the basal to mid inferior wall, suggesting inducible myocardial ischemia in this region. Normal left ventricular systolic function demonstrated. cc: MD Isabel Olivia CRNP
--- NOTE | 2019-01-05 03:45 | CARDIOLOGY CONSULTATION ---
DATE: 01/04/2019 CHIEF COMPLAINT: Chest pain. HISTORY OF PRESENT ILLNESS: Mr. Hess is a 48-year-old white male with a history of coronary bypass who presents to [place] with complaints of chest pain that began as a pressure-like sensation with radiation up into the left shoulder. It began in the setting of an intense argument, but otherwise was not occurring with any physical exertion. He denied any diaphoresis, but may have had some nausea. Since presentation, he has not had any further bouts of chest pain. PAST MEDICAL HISTORY: 1. Significant for myocardial infarction with history of coronary disease and coronary bypass grafting. He believes his coronary bypass grafting was performed in 2015. I do not have detailed records of this. It appears that through cardiac catheterization in November 2015, he had a vein graft to the LAD procedure, a vein graft to a diagonal, and a vein graft to a ramus. His last heart catheterization in November 2015 showed a distal left main of 15%, the LAD was proximally occluded. The vein graft to the LAD appeared to be open. Circumflex was a small AV circumflex. The ramus intermedius was subtotal. A vein graft to a ramus was intact. A vein graft to a diagonal was subtotaled. The RCA had a 40 to 50 percent lesion. The EF on that study was 35 to 40 percent with an EDP of 20. 2. Hypertension. 3. Diabetes. 4. Gout. 5. Hyperlipidemia. SOCIAL HISTORY: The patient continues to smoke. He is . His is present in the room. FAMILY HISTORY: Significant for hypertension. REVIEW OF SYSTEMS: A 10-system review of systems is negative, except for those mentioned in HPI. PHYSICAL EXAM: Vital signs: Patient is afebrile. Heart rate of 90, his most recent blood pressure is 150/75, on presentation it was 204/104. General: He is in no acute distress. HEENT: Oropharynx is moist. Poor dentition. Eye examination is pink conjunctivae, white sclerae. Neck: Shows no obvious thyromegaly or thyroid tenderness. Cardiovascular: He sounds to be in a regular rate and rhythm. He has no obvious murmurs. He has no S3. He has no lower extremity edema. Chest: Clear bilaterally. He has no increased work of breathing. Abdomen: Soft, nontender, nondistended. He has no obvious organomegaly. Skin: Warm and dry throughout without any rashes. Neurological: He is moving all extremities well. He has no lateralizing deficits. Psychiatric: Alert, oriented, pleasant. He has normal mood and affect. PERTINENT DATA: His EKG shows sinus rhythm. He does have some biphasic T-wave changes in V1 and V2. His subsequent EKG on the 01/04 at 0857 hours seems to show some improvement of those anterior T-wave changes, but otherwise unremarkable. His chest x-ray was unremarkable. His lab studies show a white count 8.8, his hematocrit is 42, his platelet count is 245,000. His sodium is 140, potassium 3.9, BUN 11, creatinine is 1. His cardiac enzymes are negative times multiple sets. His proBNP was normal. ASSESSMENT: Mr. Hess is a 48-year-old gentleman with history of coronary disease, noncompliance, with smoking cessation, who presented with chest discomfort concerning for angina. His nuclear scan demonstrated reversible ischemia in the inferior wall. PLAN: I have recommended cardiac catheterization to this patient. This was recommended as well in August 2018, at the time of a previous hospitalization. He currently is deciding whether or not he would like to proceed with this plan. I have counseled him on smoking cessation. I have tried to answer all his questions regarding the upcoming procedure, but he still seems hesitant. He understands the risks, benefits, and alternatives of the procedure, as well as of turning down the procedure. I will start him on amlodipine at 5 mg daily to try to add to his antianginal therapy. This is in addition to his metoprolol which he is currently on. His pulse rate has been somewhat variable, being anywhere from the 60s to 90s. Currently, he is on metoprolol at a dose of 25 mg daily. I will increase it to 50 mg daily. Most of his lower heart rates seem to be in the overnight hours. We will wait his decision regarding catheterization. cc: Fidel Saha MD
[2019-01-05] MEDS ORDERED: PRILOSEC PO SCH (07:00)
[2019-01-05] MEDS ORDERED: TOPROL XL PO SCH (09:00)
[2019-01-05] MEDS ORDERED: NORVASC PO SCH (09:00)
--- NOTE | 2019-01-05 16:33 | DISCHARGE SUMMARY ---
ADMISSION DATE: 01/04/2019 DISCHARGE DATE: 01/04/2019 The patient came in with atypical chest pain which may have actually been unstable angina. He also had an abnormal myocardial perfusion scan. Briefly this is a patient known CAD, who has had bypass and stents, who came in with chest pain and left arm pain similar to previous anginal equivalence. He had serial enzymes, those were negative. He had a myocardial perfusion scan which preliminary report shows a moderate sized reversible defect in the inferior lateral portion of the heart. Ejection fraction was intact. The patient was symptomatic during the stress test. I was present during the test administration. We consulted. I discussed the case briefly with Dr. Malloy and consulted Dr. Saha, who recommended a left heart catheterization and the patient refused. I talked to them at length at least half an hour about risks with his family present. His son and his and he just felt it he had a bad feeling that if he got the test done something bad would happen. He understood the risks of acute CHF, acute myocardial infarction, and he still wished to leave [place]. I did continue his medications which were aspirin 81 daily, clonidine 0.1, fluoxetine 20, hydrochlorothiazide 25 daily, Lipitor 80, lisinopril 40, omeprazole 40, Flomax 0.4 daily, Uloric 80 daily, Toprol-XL 50 daily, was a new medication. He is to follow up with Dr. Del Real and I would recommend follow up with Dr. Saha in case he changes his mind about possible left heart catheterization because I think he will have issues otherwise. cc: Jos Galvan MD
== END 2019-01-04 18:35 | disposition left against medical advice (07) | DRG 313 ==
LOC: P.ED 18:16 → P.MEDSURG 01-04 00:07
PROVIDERS: ATTEND Internal Medicine
CPT/HCPCS: 71020; 71046; 78452; 80053; 82550; 83880; 84484; 85025; 85610; 85730; 93005; 93017; 96374; 96375; 96376; 99285; 99291; A9270; A9500; J1170; J2270; J2785; J7030

== ENCOUNTER 2019-03-12 19:49 | Observation (INO) ==
[2019-03-12] MEDS ORDERED: ASPIRIN PO ONE (20:06)
--- NOTE | 2019-03-12 20:08 | EKG Report ---
Test Performed on : 03/12/2019 7:51:53 PM Test Reason : CP Blood Pressure : / mmHG Vent. Rate : 087 BPM Atrial Rate : 087 BPM P-R Int : 136 ms QRS Dur : 088 ms QT Int : 394 ms P-R-T Axes : 054 082 058 degrees QTc Int : 474 ms Normal sinus rhythm. Normal ECG When compared with ECG of 04-JAN-2019 08:57, T wave inversion no longer evident in Lateral leads Unconfirmed Result
[2019-03-12 20:27] LABS: BASO# 0.09 X1000 (0.0-0.2); BASO% 0.8 % (0.0-0.8); EOS# 0.52 X1000 (0.0-0.7); EOS% 4.6 % (0.0-10.0); HEMATOCRIT 46.7 % (42.0-52.0); HEMOGLOBIN 16.2 g/dL (14.0-18.0); IMM GRAN# 0.02 X1000 (0.0-0.04); IMM GRAN% 0.2 % (0.0-0.5); LYMPH# 2.41 X1000 (1.2-3.4); LYMPH% 21.4 % (20.5-51.1); MCH 28.3 PG (27-31); MCHC 34.7 g/dL (33-37); MCV 81.6 FL (81-99); MONO# 0.58 X1000 (0.11-0.59); MONO% 5.2 % (1.7-9.3); NEUT# 7.64 X1000 (1.4-6.5); NEUT% 67.8 % (42.2-75.2); PLT 279 X1000 (130-400); RBC 5.72 XMIL (4.7-6.1); RDW 13.3 % (11.5-14.5); WBC 11.26 X1000 (4.8-10.8)
[2019-03-12 20:30] LABS: INR 1.02; PROTIME 13.6 Seconds (11.0-16.0)
[2019-03-12 20:31] LABS: PTT 28.7 Seconds (22.3-41.8)
[2019-03-12] MEDS ORDERED: MORPHINE IV ONE (20:38)
[2019-03-12] MEDS ORDERED: ZOFRAN IV ONE (20:38)
[2019-03-12] MEDS ORDERED: G.I. COCKTAIL PO ONE (20:38)
--- NOTE | 2019-03-12 20:40 | Diag Imaging Result Doc PS360 ---
EXAM: CHEST-2 VIEWS HISTORY: CP TECHNIQUE: Chest two views COMPARISON: 01/03/2019 FINDINGS: The lungs are well expanded. The heart is not enlarged. Sternal wires are present. The vessels are not distended. There are no infiltrates. No pleural effusions. Left-sided granuloma. IMPRESSION: No acute abnormality. Electronically signed by Carlos Ruggiero 03/12/2019 8:38 PM
[2019-03-12 20:42] LABS: AGAP 13; ALB/GLOB RATIO 1.8; ALBUMIN 4.7 g/dL (3.5-5.0); ALKALINE PHOSPHATASE 109 U/L (32-122); BUN 9 mg/dL (8-22); CALCIUM 9.1 mg/dL (8.8-10.2); CHLORIDE 101 mmol/L (98-107); CK PROFILE 144 U/L (24-204); COSMO 278; CREATININE 1.1 mg/dL (0.7-1.2); ESTIMATED GFR > 60; GLUCOSE 91 mg/dL (70-104); GOT 17 U/L (10-34); GPT 18 U/L (10-44); SODIUM 140 mmol/L (136-145); TCO2 26 mmol/L (25-35); TOTAL BILIRUBIN 0.61 mg/dL (0.20-1.00); TOTAL PROTEIN 7.3 g/dL (6.3-8.3)
--- NOTE | 2019-03-12 21:22 | PROVIDER DOCUMENTATION ---
This chart was entered by aYsmeen Link Scribe, acting as scribe for Naeem Felton MD. HPI-Chest Pain - General Chief Complaint: Chest Pain Stated Complaint: CHEST PAIN/LEFT ARM PAIN/SOB/HISTORY OF HEART PROB Time Seen by Provider: 03/12/19 20:31 Source: patient Allergies/Adverse Reactions: Patient Allergies Allergy/AdvReac Type Severity Reaction Status Date / Time acetaminophen [From [place]] Allergy Intermediate HIVES Verified 03/12/19 20:58 hydrocodone bitartrate * Allergy Intermediate HIVES Verified 03/12/19 20:58 [From [place]] ketorolac tromethamine * Allergy Mild RASH Verified 03/12/19 20:58 [From Toradol] promethazine HCl * AdvReac Mild "makes me Verified 03/12/19 20:58 [From Phenergan] drunk" Home Medications: Home Medication List Medication Instructions Recorded Confirmed Last Taken Type Atorvastatin Calcium [Lipitor] 80 mg PO DAILY 02/08/15 03/12/19 02/14/17 History Clonidine HCl 0.1 mg PO PRN PRN 01/24/17 03/12/19 02/14/17 History Tamsulosin HCl 1 tab PO DAILY 01/24/17 03/12/19 02/14/17 History Aspirin [Adult Low Dose Aspirin EC] 81 mg PO DAILY 12/12/17 03/12/19 Unknown History Lisinopril 40 mg PO DAILY 12/12/17 03/12/19 Unknown History - History of Present Illness-CP Nature of Presenting Problem: pt is a 48 yr old male presenting with complaint of chest pain x 1 day, pain to left arm, no shortness of breath. pt admits nausea. pt reports hx CABG and ID x 4 Location: reports: substernal Chest Pain Radiation: reports: arms (left) Quality of Pain: reports: dull Severity in ED: mild Onset/Duration: this morning Timing: still present Context/Activities at Onset: reports: light activity Modifying Factors: improves with: nothing Associated Symptoms: reports: nausea. denies: back pain, fever/chills, shortness of breath Nitro Today/Relief: no nitro taken today Aspirin Treatment Today: 325 mg x 1, provided by ED Prior Chest Pain/Cardiac Workup: reports: echocardiography (09/06/18), heart attack, stress test (01/04/19), other (CABG) Similar Symptoms Previously?: Yes Recently Seen Here or By Another Healthcare Provider: Yes Review of Systems - Adult - REVIEW OF SYSTEMS - ADULT Constitutional: denies: fever, fatique Eyes: denies: blurred vision, double vision Ears, Nose, Mouth & Throat: reports: no symptoms reported Cardiovascular: reports: chest pain. denies: edema, palpitations, syncope Respiratory: denies: cough, shortness of breath Gastrointestinal: reports: nausea. denies: abdominal pain, diarrhea, vomiting Genitourinary: reports: no symptoms reported Musculoskeletal: denies: back pain, muscle weakness Integumentary: reports: no symptoms reported Neurological: denies: dizziness/vertigo, headache/migraines Psychiatric: reports: no symptoms reported Endocrine: reports: no symptoms reported Hematologic/Lymphatic: reports: no symptoms reported Allergic/Immunologic: reports: no symptoms reported All Other Systems: Reviewed and Negative Past History - Adult - PAST MEDICAL HISTORY-ADULT Review of Records: reports: Old Records Reviewed, Nursing Assessment Review, Medications Reviewed, Social history reviewed & non-contributory. Major Childhood Illnesses: reports: denies history Cardiovascular: reports: cardiac disease, hyperlipidemia, ID, other (CABG). denies: HTN (hypotension) Respiratory: reports: denies history Gastrointestinal: reports: GERD Obstetrical/Gynecological: reports: denies history Genitourinary: reports: denies history Musculoskeletal: reports: chronic pain (chronic back pain) Neurological: reports: denies history Psychiatric: reports: depression Endocrine/Immune: reports: denies history Other Conditions: reports: denies history - PRIOR SURGERIES/PROCEDURES Surgical/Procedure History: reports: CABG, cardiac stent, other (cardiac cath by dr vargas 05-29-15) - PRIOR HOSPITALIZATIONS Prior Hospitalizations: reports: for similar symptoms, for other non-related - IMMUNIZATION STATUS Childhood Immunizations: See Nurse Assessment Flu Vaccine: See Nurse Assessment - FAMILY HISTORY Family History: aortic disease - SOCIAL HISTORY Smoking: cigarettes Substance Use: denies Physical Exam-General - PHYSICAL EXAM-ADULT Initial Vital Signs Reviewed: Yes - CONSTITUTIONAL General Appearance: appears well, alert, no apparent distress - EYES Eyes: PERRL/EOMI - HEAD, EARS, NOSE, MOUTH & THROAT HENMT: normocephalic/atraumatic, moist mucous membranes - NECK Neck: non-tender, full range of motion, supple, normal inspection - RESPIRATORY Respiratory: chest non-tender, lungs clear, no pleuratic chest pain, no respiratory distress - CARDIOVASCULAR Cardiovascular: normal peripheral pulses, regular rate, rhythm, no edema - GASTROINTESTINAL (ABDOMEN) Abdominal Exam: normal bowel sounds, non tender, soft - LYMPHATIC Lymphatic: no adenopathy - MUSCULOSKELETAL Back Exam: normal inspection, no CVA tenderness, no vertebral tenderness Extremity: normal range of motion, non-tender, normal gait, normal inspection - SKIN Integumentary: normal color, normal turgor, warm/dry - NEUROLOGIC Neurologic: grossly normal - PSYCHIATRIC Psych/Mental Status: normal mood/affect Progress - PLAN OF CARE/RESULTS Progress/Plan/Lab Results: Vital Signs - 8 hr 03/12/19 20:03 Temperature 98.3 F Pulse Rate 89 Respiratory Rate 18 Blood Pressure 214/122 O2 Sat by Pulse Oximetry 97 Laboratory Results - last 24 hr 03/12/19 03/12/19 03/12/19 20:01 20:01 20:01 WBC 11.26 H RBC 5.72 Hgb 16.2 Hct 46.7 MCV 81.6 MCH 28.3 MCHC 34.7 RDW Std Deviation 13.3 Plt Count 279 MPV 12.0 H Immature Gran % (Auto) 0.2 Neut % (Auto) 67.8 Lymph % (Auto) 21.4 Whiteside % (Auto) 5.2 Eos % (Auto) 4.6 Baso % (Auto) 0.8 Immature Gran # (Auto) 0.02 Neut # (Auto) 7.64 H Lymph # (Auto) 2.41 Whiteside # (Auto) 0.58 Eos # (Auto) 0.52 Baso # (Auto) 0.09 PT INR PTT (Actin FS) Sodium 140 Potassium 4.0 Chloride 101 Carbon Dioxide 26 Anion Gap 13 BUN 9 Creatinine 1.1 Estimated GFR/1.73 m2 > 60 BUN/Creatinine Ratio 8 Glucose 91 Calculated Osmolality 278 Calcium 9.1 Total Bilirubin 0.61 AST 17 ALT 18 Alkaline Phosphatase 109 Creatine Kinase 144 Troponin T Twc-J-Zabnsyoyyhf Pept 89 Total Protein 7.3 Albumin 4.7 Globulin 2.6 Albumin/Globulin Ratio 1.8 03/12/19 03/12/19 20:01 20:01 WBC RBC Hgb Hct MCV MCH MCHC RDW Std Deviation Plt Count MPV Immature Gran % (Auto) Neut % (Auto) Lymph % (Auto) Whiteside % (Auto) Eos % (Auto) Baso % (Auto) Immature Gran # (Auto) Neut # (Auto) Lymph # (Auto) Whiteside # (Auto) Eos # (Auto) Baso # (Auto) PT 13.6 INR 1.02 PTT (Actin FS) 28.7 Sodium Potassium Chloride Carbon Dioxide Anion Gap BUN Creatinine Estimated GFR/1.73 m2 BUN/Creatinine Ratio Glucose Calculated Osmolality Calcium Total Bilirubin AST ALT Alkaline Phosphatase Creatine Kinase Troponin T < 0.010 Ibe-N-Foxptevscef Pept Total Protein Albumin Globulin Albumin/Globulin Ratio Orders Category Date Time Status CHEST-2 VIEWS [RAD] Stat Exams 03/12/19 20:07 Completed CBC WITH ELECTRONIC DIFF [HEME] Stat Lab 03/12/19 20:01 Completed CK PROFILE [SP CHEM] Stat Lab 03/12/19 20:01 Completed COMPREHENSIVE METABOLIC PANEL [CHEM] Stat Lab 03/12/19 20:01 Completed PRO B-NATRIURETIC PEPTIDE Stat Lab 03/12/19 20:01 Completed PROTIME WITH INR [COAG] Stat Lab 03/12/19 20:01 Completed PTT [COAG] Stat Lab 03/12/19 20:01 Completed TROPONIN T Stat Lab 03/12/19 20:01 Completed Aspirin Med 03/12/19 20:06 Discontinued 325 mg PO NOW ONE Lido/Sherman Alk/Al&mg Hydrox [G.i. Cocktail] Med 03/12/19 20:38 Discontinued 30 ml PO NOW ONE Morphine Med 03/12/19 20:38 Discontinued 4 mg IV NOW ONE Ondansetron [Zofran] Med 03/12/19 20:38 Discontinued 4 mg IV NOW ONE CP/SOB/Palp >45 yrs of Age Stat Oth 03/12/19 20:06 Ordered EKG [EKG] Stat Ther 03/12/19 19:50 Draft Result Diagrams: 03/12/19 20:01 03/12/19 20:01 - EKG 1 Time of EKG reading by physician:: 19:51 EKG Read and Signed by:: Naeem Felton EKG Interpretation (*Must complete 3 of following elements*): Normal Rate: 87 Rhythm: nsr [place]: normal QRS: normal NC Interval: normal ST Wave: normal - XRAY 1 XRAY Study: Chest Impression: Normal ( EXAM: CHEST-2 VIEWS HISTORY: CP TECHNIQUE: Chest two views COMPARISON: 01/03/2019 FINDINGS: The lungs are well expanded. The heart is not enlarged. Sternal wires are present. The vessels are not distended. There are no infiltrates. No pleural effusions. Left-sided granuloma. IMPRESSION: No acute abnormality. Electronically signed by Carlos Ruggiero 03/12/2019 8:38 PM 03/12/192037 Interpreting Physician: Carlos Ruggiero MD Dictated Date/Time: 03/12/192037 cc: Naeem Felton MD; Evelio Del Real MD) Departure - Departure Date of Disposition Decision: 03/12/19 Time of Disposition Decision: 21:22 DIAGNOSIS: Chest pain in adult Disposition: ADMITTED INPATIENT 09 Certified Medical Emergency: Emergent Condition: Stable Referrals and Follow-Ups: Evelio Del Real MD [Primary Care Provider] - - Critical Care Note This patient required my direct & personal management of CC.: No Attestation - Physician/ ARVIND Attestation Patient care was provided by Advanced Practice Provider:: No The physician spent face to face time with patient:: Yes Advanced Practice Provider documentation review:: Supervising physician onsite and consulted in the evaluation and care of this patient. The physician did have a face to face encounter with the patient. This chart was documented by the indicated scribe, (Yasmeen Link Scribe) and accurately reflects the services I performed and decisions made by me, Naeem Felton MD, as attested by the provider's signature.
[2019-03-12] MEDS ORDERED: MORPHINE IV PRN (22:35)
--- NOTE | 2019-03-12 23:16 | HISTORY AND PHYSICAL ---
PRIMARY CARE PHYSICIAN: Dr. Je Del Real. CHIEF COMPLAINT: Chest pain. HISTORY OF PRESENTING ILLNESS: 48-year-old male with a history of WI, coronary disease, hypertension, diabetes mellitus type 2 who presented to emergency department 2 days history of having substernal chest pain. The patient states that the pain was radiating to his left upper extremity and seemed to be worsening. The patient was evaluated the emergency department. Due his presenting symptoms it was thought that he would need admission further management. The patient apparently was admitted about several months ago with similar complaints and had a positive GXT however he was reluctant to do heart catheterization at that time. Time my examination patient denied any headache, fever, chills, nausea, vomiting, diarrhea, hemoptysis, melena, weight changes but complained chest discomfort. PAST MEDICAL HISTORY: Includes WI, coronary disease, hypertension, diabetes mellitus type 2, lipidemia, GERD. PAST SURGICAL HISTORY: Coronary bypass, coronary stent. ALLERGIES: Acetaminophen, hydrocodone, ketorolac, promethazine . CURRENT MEDICATIONS: Include aspirin 81 mg p.o. daily, atorvastatin 80 mg p.o. daily, clonidine 0.1 p.o. daily, lisinopril 40 mg p.o. daily, tamsulosin 0.4 mg p.o. daily . SOCIAL HISTORY: 40+ pack years history of smoking. Denies any history alcohol or illicit drug use. FAMILY HISTORY: Positive for coronary disease father. REVIEW OF SYSTEMS: Fourteen point review of systems is as in HPI other systems negative. PHYSICAL EXAMINATION: GENERAL: Cooperative, friendly male he is resting more comfortably now. VITAL SIGNS: Temperature 98.2 degrees, pulse 75, respiration is 18, blood pressure 186/108. HEENT: Atraumatic, normocephalic. Extraocular movements intact. PERRLA. NECK: Supple. CHEST: Clear to auscultation. CARDIOVASCULAR: Regular rate and rhythm. ABDOMEN: Soft, positive bowel sounds. EXTREMITIES: No edema. NEURO: He is awake, alert, oriented x3. : No bladder distention. SKIN: Warm . LABORATORIES AND STUDIES: WBCs 11.26, hemoglobin 16.2, hematocrit 46.7, platelets 279,000, sodium 140, potassium 4.0, chloride 101, CO2 of 26, BUN is 9, creatinine 1.1, glucose is 91. Troponin 0.010. ASSESSMENT: 48-year-old male with a history of coronary disease, myocardial infarction, hypertension, diabetes mellitus type 2 who had presented to emergency department with several days history of having chest pain. Patient was evaluated in emergency department. Due to his presenting symptoms he will require admission further management . 1. Chest pain. 2. Coronary artery disease. 3. Hypertension. 4. Diabetes mellitus type 2. 5. Ongoing tobacco abuse. PLAN: 1. We will admit patient to medical floor with telemetry. 2. Continue cardiac workup, check EKG, serial cardiac enzymes, have patient continue on aspirin, will use sublingual nitroglycerin and morphine p.r.n. chest pain. 3. Will consult Cardiology. 4. Monitor blood pressure closely, resume antihypertensive agent. 5. Put patient on glycemic protocol with sliding scale insulin regimen. 6. I counseled patient extensively on smoking cessation. 7. Put patient DVT prophylaxis SCD. 8. Will continue to follow and reassess make further recommendation based on patient's clinical course. cc: Lenin Beverly MD
[2019-03-12] MEDS ORDERED: LOVENOX SUBQ SCH (23:50)
[2019-03-12] MEDS ORDERED: CATAPRES PO PRN (23:50)
[2019-03-12] MEDS ORDERED: ZOFRAN IV PRN (23:50)
[2019-03-13] MEDS: NITROGLYCERIN SL PRN ×3 (02:47→03:10)
[2019-03-13] MEDS: MORPHINE IV PRN ×4 (03:50→16:52)
--- NOTE | 2019-03-13 03:54 | EKG Report ---
Test Performed on : 03/13/2019 03:29:14 AM Test Reason : chest pain Blood Pressure : / mmHG Vent. Rate : 068 BPM Atrial Rate : 068 BPM P-R Int : 152 ms QRS Dur : 088 ms QT Int : 450 ms P-R-T Axes : 049 071 087 degrees QTc Int : 478 ms Normal sinus rhythm. Normal ECG When compared with ECG of 12-MAR-2019 19:51, (Unconfirmed) Nonspecific T wave abnormality now evident in Lateral leads Unconfirmed Result
[2019-03-13] MEDS ORDERED: PRILOSEC PO SCH (07:00)
[2019-03-13 07:45] LABS: CHOLESTEROL 199 mg/dL (0-200); HDL 25 mg/dL (35-55); LDL 126 mg/dL; TRIGLYCERIDES 239 mg/dL (39-160); VLDL 48 mg/dL
[2019-03-13] MEDS ORDERED: ASPIRIN PO SCH (09:00)
[2019-03-13] MEDS ORDERED: ASPIRIN EC PO SCH (09:00)
[2019-03-13] MEDS ORDERED: LIPITOR PO SCH (09:00)
[2019-03-13] MEDS ORDERED: PRINIVIL PO SCH (09:00)
[2019-03-13] MEDS ORDERED: FLOMAX PO SCH (09:00)
[2019-03-13] MEDS ORDERED: HEPARIN 1000 UNITS/NS 2,000 UNIT/1,000 ML IV.SOLN ONE (12:50)
[2019-03-13] MEDS ORDERED: NITROGLYCERIN ONE (12:59)
--- NOTE | 2019-03-13 13:31 | PROGRESS NOTE ---
DATE: 03/13/2019 SUBJECTIVE: Mr. Hess came in with chest pain. He is a patient of Dr. Je Del Real. He is a 48-year-old with history of myocardial infarction, coronary artery disease, hypertension, and diabetes mellitus type 2 presented to the emergency department for 2-day history of having substernal chest pain. He states it is radiating to his left upper extremity, and seemed to be worsening. The patient evaluated in the emergency department. Due to his presenting symptoms, thought he needed admission for management. The patient apparently admitted several months ago with similar complaints, and had a positive GXT, but he was reluctant to get a heart catheterization. I think the plan is to get a heart catheterization today. He is still having the chest pain and left arm discomfort. OBJECTIVE: Temperature 98.1 degrees, pulse 58, respirations 18, and blood pressure 130/80. Pupils are equal and round. Lungs are clear in all lung lazaro. Cardiovascular regular rhythm and rate without murmur or S3. Abdomen is soft. Skin is warm and dry. No pedal edema. LABORATORY: His troponin less than 0.01. CK 127 and 123. ASSESSMENT AND PLAN: I believe the plan is to pursue heart catheterization. I think they are planning on doing that today is my understanding. cc: Jitendra Oquendo MD
[2019-03-13] MEDS ORDERED: DEMEROL ONE (13:32)
[2019-03-13] MEDS ORDERED: VERSED ONE (13:32)
--- NOTE | 2019-03-13 13:32 | CARDIOLOGY CONSULTATION ---
DATE: 03/13/2019 CONSULTATION REQUESTED BY: Hospitalist service. REASON FOR CONSULTATION: Patient with chest pain, unstable angina. HISTORY: Mr. Hess is a 48-year-old male, who is known to our group. He has had multiple admissions and recent admission in December 2018 with unstable angina. He had an abnormal stress test at that time. Now he is coming back to the hospital with less than 24 hours of sudden onset of severe chest pain. The last time he was admitted, I believe, to the [facility], and he declined to have a heart catheterization at that time. He left AMA. This time, he is back in the hospital with no chest pains. EKG shows no acute ischemic shift. He has ruled out for PR by means of multiple troponins. Unfortunately, the patient has continued to smoke. His chest pain has improved since he was admitted to the hospital. PAST HISTORY: Positive for previous bouts of unstable angina, previous stents. Subsequently, he has had a coronary bypass procedure, I believe, in 2014 or 2015. He has had a subsequent heart catheterization that showed that 1 graft was subtotally occluded. That catheterization indicated that he had a patent vein graft to the LAD and a patent vein graft to ramus intermedius. The right coronary artery was only moderately stenosed. This procedure was done by Dr. Ulloa in November 2015. The patient has a history of hypertension. He has a history of diabetes, dyslipidemia, acid reflux, and chronic back pain. PAST SURGICAL HISTORY: The triple bypass procedure; apparently, they only used vein grafts. SOCIAL HISTORY: He is , disabled. He is a smoker and still smokes in spite of all the multiple admissions with chest pain. FAMILY HISTORY: Father had myocardial infarction age 54. ALLERGIES: To multiple drugs. The ones reported included acetaminophen, [place], ketorolac, promethazine. HOME MEDICATIONS: Aspirin 81 daily, Lipitor 80 daily, clonidine 0.1 as needed, lisinopril 40 daily, tamsulosin 1 tablet daily. REVIEW OF SYSTEMS: Recurrent chest pains. No other positives. PHYSICAL EXAMINATION: Blood pressure 130/80, temperature 98.1 degrees, pulse 58, respirations 18. He is awake, alert, oriented, in no distress.HEENT: Unremarkable. Chest: Clear to auscultation and percussion. Heart sounds regular and rhythmic. I do not hear any gallop or murmur. His abdomen is nontender. No masses. No hepatomegaly. Extremities showed decreased pulses. No peripheral edema. Neurological: Follows commands. Moves 4 extremities. DIAGNOSTIC STUDIES: Sodium 140, potassium 4.0, BUN 9, creatinine 1.1. CPKs, troponins negative. ProBNP is normal. LDL cholesterol 126, triglycerides 239, cholesterol 199, HDL 25. Chest x-ray done yesterday shows no acute abnormality. IMPRESSION: 1. Patient presenting with recurrent chest pain. Sounds like unstable angina. He has had previous bypass surgery with failure of one of the grafts already shortly after his surgery. 2. Persistent tobacco abuse. 3. Diabetes mellitus, type 2. 4. Hypertension. RECOMMENDATIONS: At this time, I am recommending to this patient to pursue heart catheterization. Benefits, risks, complications discussed. He understood and requested to proceed. cc: Sunny Mireles MD
[2019-03-13] MEDS ORDERED: CLAVE TWINSITE 32 IN 11959 ONE (13:33)
[2019-03-13] MEDS ORDERED: NS 1,000 ML ONE (13:33)
[2019-03-13] MEDS ORDERED: ANESTHESIA PB SET 88 IN 5742 ONE (13:33)
[2019-03-13] MEDS ORDERED: BENADRYL ONE (14:30)
--- NOTE | 2019-03-13 15:18 | CARDIAC CATH REPORT ---
DATE: 03/13/2019 PROCEDURES: 1. Left heart catheterization. 2. Selective bilateral coronary arteriography. 3. Left ventriculography. 4. Opacification of the aortic root/ascending aortogram. 5. Selective opacification of vein graft to left anterior descending. 6. Selective opacification of vein graft to ramus intermedius. 7. Opacification of the right femoral artery with deployment of 6 Georgian Angio- Seal device. HISTORY: A 48-year-old male presenting with unstable angina. Recently admitted to the hospital in December of 2018 with similar symptoms. At that time, a stress test showed ischemia of the inferior wall and cardiac catheterization was recommended, however, the patient signed AMA and continued to smoke cigarettes. At this time, his symptoms are ongoing and we recommended to do a heart catheterization to determine whether or not he would be a suitable candidate for intervention. Benefits, risks and complications were discussed. He understood and requested to proceed. DESCRIPTION: The patient was brought to the cardiac label operator in a fasting state. The right groin was prepped and draped in a sterile fashion, anesthetized with lidocaine 1%. He received 1 mg of Versed, 25 mg of Demerol. A 6 Georgian sheath was inserted into the right femoral artery by following the modified Seldinger technique. Using a 6 Georgian left Sienna 4 catheter, the left coronary artery was selectively opacified in multiple projections. Then using a 6 Georgian right Sienna catheter, the right coronary artery was opacified. Then the vein graft to the ramus intermedius was opacified. The left [place] internal mammary artery and the right mammary artery were opacified by injection of the subclavian arteries on both sides. They were not used for bypass. Then, we opacified the left ventricle in the 60 degree MALTESE projection and 30 degree DENNISON projection by hand injection. Then, we attempted to opacify the vein graft to the LAD with a 6 Georgian mammary catheter, it was not possible. We tried a 6 Georgian A2 multipurpose catheter and again this did not help. Finally once we identified the ostium of the vein graft to LAD, we were able to opacify it selectively with a 6 Georgian 4 right Sienna catheter. At the end of the procedure, the catheter was removed and the sheath was flushed. Right femoral artery opacified then Angio-Seal device was deployed successfully. The patient tolerated the procedure well without complication. SUMMARY OF HEMODYNAMIC FINDINGS: Central aortic pressure 121/73, left ventricular pressure 124/14, post LV gram 113/16. Final central aortic pressure 112/67. SUMMARY OF THE ANGIOGRAPHIC FINDINGS: 1. Left main coronary artery: The vessel appears to be diffusely diseased, short in length, and divides into LAD, ramus intermedius, and circumflex. 2. Left anterior descending coronary artery: The vessel is opacified through injection of a vein graft. The vessel is totally occluded at its ostium. 3. Ramus intermedius: The ramus intermedius shows a long proximal stenosis of 80% to 90% and its distal portion is visualized mostly through injection of the vein graft. 4. Circumflex: The circumflex is a nondominant system, diffusely diseased in its mid section in the order of 80% to 90%, gives rise to sinus nba branch. Distally only gives rise to a tiny bifurcating branch. 5. Right coronary artery: The right coronary artery is a dominant system, shows a proximal stenosis of about 40%, gives rise to good marginal vessels. It is distal third, the right coronary artery shows a 70% to 80% stenosis. It divided into a PDA and posterolateral branch. The right coronary artery seems to be a good target for percutaneous intervention. OPACIFICATION OF VEIN GRAFT TO RAMUS INTERMEDIUS: The vessel is in good condition, patent, its ostium, body, and distal anastomosis are all in good condition. It perfuses the ramus intermedius with good visualization of the distal portion of the vessel. VEIN GRAFT TO LAD: This vessel arises from the right side of the aorta and it attaches to the mid LAD. This graft is in good condition. Its proximal segment, its anastomosis and the distal LAD are all in good condition. No critical stenosis was noted. There is some retrograde perfusion into more proximal septal branches of the LAD. ASCENDING AORTOGRAM: Shows no dilatation of the aorta. The ostium of the vein graft to the LAD was identified and also the ostium of the vein graft to the ramus intermedius was identified. One additional vein graft appeared to be occluded at its ostium (previously described in 2016). LEFT VENTRICULOGRAM: Left ventriculogram in the 60 degree MALTESE projection and 30 degree DENNISON projection shows excellent left ventricular contractility, ejection fraction of 60% to 65%. OPACIFICATION OF THE FEMORAL ARTERY: This vessel is unremarkable. Angio-Seal device was deployed successfully. SUMMARY: This study shows: 1. Severe 3 vessel coronary artery disease with severe stenosis of the distal right coronary artery that appears to be suitable for a stent, total occlusion of the ostial LAD, severe long stenosis of ramus intermedius, and a severe stenosis of a small circumflex system. 2. Patent saphenous vein graft to LAD system with good perfusion of the LAD. 3. Patent saphenous vein graft to ramus intermedius with good perfusion of that vessel. 4. Excellent left ventricular contractility, ejection fraction of 60% to 65%. 5. No mitral regurgitation, no aortic stenosis. 6. No dilatation of the aortic root, no aortic valve regurgitation. The ostia of the vein graft were identified. 7. Unremarkable right femoral artery with successful deployment of Angio-Seal device. 8. Previously occluded SVG to diagonal at its ostium. RECOMMENDATIONS: At this time, the patient will be encouraged to follow a strict medical regimen and we are going to confer with Interventional Team in [place] to consider intervention to the right coronary artery. At the end of this dictation, I was able to contact Dr. Niles Vdial, who indeed agrees that intervention to the right coronary artery is reasonable. We will prepare the patient for that purpose. He will be transferred in the morning to [facility]. cc: Sunny Mireles MD [facility] HOSPITALChristiano
[2019-03-13] MEDS ORDERED: RESTORIL PO PRN (15:57)
[2019-03-13] MEDS ORDERED: MILK OF MAGNESIA PO PRN (15:57)
[2019-03-13] MEDS ORDERED: MAGNESIUM SULFATE 2 GM in STERILE WATER INJ. 50 ML IV PRN ×4 (15:57)
[2019-03-13] MEDS ORDERED: ZOFRAN IV PRN (15:57)
[2019-03-13] MEDS ORDERED: XANAX PO PRN (15:57)
[2019-03-13] MEDS ORDERED: NITROGLYCERIN SL PRN (15:57)
[2019-03-13] MEDS ORDERED: MAGNESIUM SULFATE 3 GM in NS 100 ML IV PRN (15:57)
[2019-03-13] MEDS ORDERED: DULCOLAX PR PRN (15:57)
[2019-03-13] MEDS ORDERED: PERCOCET-5 PO PRN (15:57)
[2019-03-13] MEDS ORDERED: TYLENOL PO PRN (15:57)
[2019-03-13] MEDS ORDERED: KLOR-CON PO PRN ×3 (15:57)
[2019-03-13] MEDS ORDERED: CEPACOL SORE THROAT LOZENGE MT PRN (15:57)
[2019-03-13] MEDS ORDERED: NS 1,000 ML IV SCH (16:00)
--- NOTE | 2019-03-13 16:21 | EKG Report ---
Test Performed on : 03/13/2019 4:10:47 PM Test Reason : post cath Blood Pressure : / mmHG Vent. Rate : 055 BPM Atrial Rate : 055 BPM P-R Int : 140 ms QRS Dur : 088 ms QT Int : 482 ms P-R-T Axes : 032 079 090 degrees QTc Int : 461 ms Sinus bradycardia. Otherwise normal ECG When compared with ECG of 13-MAR-2019 03:29, (Unconfirmed) No significant change was found Unconfirmed Result
[2019-03-13 20:14] VITALS: BP 149/80
== END 2019-03-13 20:42 | disposition short-term general hospital (02) ==
LOC: ED 19:49 → 3N 19:49 → SUATTDRO 22:57 → 3S 03-13 15:32
PROVIDERS: ATTEND Emergency Medicine
CPT/HCPCS: 71020; 71046; 80053; 80061; 82550; 82948; 83880; 84484; 85025; 85610; 85730; 93005; 93459; 93567; 93568; 94761; A9270; C1760; J1200; J1644; J1650; J2175; J2250; J2270; J2405; J7030; Q9967; XXXXX